=== PATIENT | male | born 1975 | race Caucasian/White ===

== ENCOUNTER 2016-08-28 22:42 | Emergency (ER) | payer MEDICARE ==
--- NOTE | 2016-08-29 01:07 | ED NURSING NOTES ---
Clinical Report - Nurses [facility] [address] [place] [address] 08/28/2016 22:43 Patient: MARILY ARREDONDO TRIAGE Triage time 23:26. Acuity: LEVEL 4. Chief Complaint: FALL (GLF). 23:42. Alert. SEPSIS SCREEN: Sepsis Screen. Negative (no infection suspected/documented). RHONDA COMA SCORE: Rhonda Coma Scale: 15- eyes open spontaneously (4); best verbal response- oriented x 4 (5); best motor response- obeys commands (6). --23:42 Ethan Pereira R.N. 23:26 08/28/16. BP: 139/74. HR: 99. RR: 14. O2 saturation: 91% on room air. Temp: 98.8 F (oral). Pain level now: 08/12. --23:42 Ethan Pereira R.N. Medications CloNIDine HCl Oral 0.1 mg, 2x a day. --23:35 Ethan Pereira R.N. ClonazePAM Oral 0.5 mg, daily as needed. --23:35 Ethan Pereira R.N. [place] Carbonate ER Oral (Tablet Extended Release 300 mg) 5 tabs, daily. --23:36 Ethan Pereira R.N. Metoprolol Tartrate Oral 25 mg, daily. --23:37 Ethan Pereira R.N. LORazepam Oral 1 mg, daily as needed. --23:38 Ethan Pereira R.N. Lisinopril Oral 10 mg, daily. --23:38 Ethan Pereira R.N. Gabapentin Oral (Capsule 300 mg) (2 caps 2 x daily 3 caps at night ). --23:38 Ethan Pereira R.N. OLANZapine Oral (Tablet 5 mg) 1/2 - 2 tabs , 3x a day as needed. --23:39 Ethan Pereira R.N. The following entry was struck and corrected by Ethan Pereira R.N., 23:42 (08/28/16) Reason for correction - other(correction). <<STRICKEN ENTRY-- LORazepam Oral 1 mg, daily. --23:38 Ethan Pereira R.N. --END STRIKE>> The following entry was struck and corrected by Ethan Pereira R.N., 23:42 (08/28/16) Reason for correction - other(correction). <<STRICKEN ENTRY-- ClonazePAM Oral 0.5 mg, daily. --23:35 Ethan Pereira R.N. --END STRIKE>>. Medication/allergy information source: the patient's family. --23:42 Ethan Pereira R.N. Allergies Penicillins. Sulfa Antibiotics. --23:40 Ethan Pereira R.N. History Arrived by private vehicle. Historian: family. Accompanied by family. Primary physician (Kevin). This occurred (2 hours ago). ( Mom reports pt is Bipolar had a manic episode then a depressed episode and stated drinking last Sunday, fell x2 today at home). Treatment MANAGER CASINO: None. Trauma activation: Pre-hospital notification of patient arrival was not received. PAST MEDICAL HX: Tetanus status: more than 5 years ago. Immunizations: up-to-date. SOCIAL HX: Current every day heavy tobacco smoker- 1 pack per day. Occasional alcohol use. Patient smells of ETOH in the emergency department (States " I drank 3-4 fifths today"). No drug use. No infectious disease exposure. ABUSE ASSESSMENT: No report of abuse. FALL RISK ASSESSMENT: Fall risk assessment completed. No fall risk identified. NUTRITIONAL RISK ASSESSMENT: The nutritional risk assessment revealed no deficiencies. FUNCTIONAL ASSESSMENT: Functional assessment: no impairments noted. LEARNING NEEDS ASSESSMENT: The learning needs assessment revealed no barriers. SKIN INTEGRITY ASSESSMENT: Skin integrity risk assessment completed. No skin integrity risk identified. --23:42 Ethan Pereira R.N. PROBLEMS: Alcohol Intoxication. Heart Disease. Gastroesophageal Reflux. Suicidal Ideation. Gastroesophageal Reflux Disease. Cardiomyopathy. Hypertension. Alcoholism. --23:41 Ethan Pereira R.N. Bipolar Disorder. --23:41 Ethan Pereira R.N. Interventions ID band on patient. To treatment room. --23:42 Ethan Pereira R.N. PHYSICAL ASSESSMENT 23:32. Ambulatory to room. Patient gowned. GENERAL / NEURO / PSYCH: Alert. Oriented X 4. ( slurred speech). HEENT: Forehead: small abrasion. RESPIRATORY: Respirations not labored. EXTREMITIES: Extremities exhibit normal ROM. Neuro-vascular status intact to the extremity. SKIN: Skin intact. Skin is warm and dry. --23:32 Ethan Pereira R.N. NURSING PROGRESS NOTES 23:31. Oxygen administered by nasal cannula at 2 liters. Two patient identifiers checked. Call light placed in reach. Side rails up x 2. Bed placed in lowest position. Brakes of bed on. --23:31 Ethan Pereira R.N. 00:10. ( pt mother came to nurses station stating pt became agitated and got up and walked out of department. MD notified and family in waiting room attempting to convince pt to return to room.). --00:14 Namrata Minor R.N. DISPOSITION / DISCHARGE Departure time: 4. The patient left the Emergency Department without being seen by a physician. The patient appears to be alert, oriented x4, coherent and uncooperative. He stated is leaving the ED due to personal reasons. Notified the ED physician and charge nurse of patient departure. He left the Emergency Department ambulatory. ( Family was unable to convince patient to come back into the ED. Dr. Bryant informed me that he did speak to the patient's mother and told her that if she feels she needs to, she can call the police and have them bring the patient back to the ED.). --01:06 Ethan Pereira R.N. Locked/Released at 08/29/2016 1:12 by Ethan Pereira R.N.
--- NOTE | 2016-08-29 01:07 | ED NURSING NOTES ---
Clinical Report - Nurses [facility] [address] [place] [address] 08/28/2016 22:43 Patient: MARILY ARREDONDO TRIAGE Triage time 23:26. Acuity: LEVEL 4. Chief Complaint: FALL (GLF). 23:42. Alert. SEPSIS SCREEN: Sepsis Screen. Negative (no infection suspected/documented). RHONDA COMA SCORE: Rhonda Coma Scale: 15- eyes open spontaneously (4); best verbal response- oriented x 4 (5); best motor response- obeys commands (6). --23:42 Ethan Pereira R.N. 23:26 08/28/16. BP: 139/74. HR: 99. RR: 14. O2 saturation: 91% on room air. Temp: 98.8 F (oral). Pain level now: 08/12. --23:42 Ethan Pereira R.N. Medications CloNIDine HCl Oral 0.1 mg, 2x a day. --23:35 Ethan Pereira R.N. ClonazePAM Oral 0.5 mg, daily as needed. --23:35 Ethan Pereira R.N. [place] Carbonate ER Oral (Tablet Extended Release 300 mg) 5 tabs, daily. --23:36 Ethan Pereira R.N. Metoprolol Tartrate Oral 25 mg, daily. --23:37 Ethan Pereira R.N. LORazepam Oral 1 mg, daily as needed. --23:38 Ethan Pereira R.N. Lisinopril Oral 10 mg, daily. --23:38 Ethan Pereira R.N. Gabapentin Oral (Capsule 300 mg) (2 caps 2 x daily 3 caps at night ). --23:38 Ethan Pereira R.N. OLANZapine Oral (Tablet 5 mg) 1/2 - 2 tabs , 3x a day as needed. --23:39 Ethan Pereira R.N. The following entry was struck and corrected by Ethan Pereira R.N., 23:42 (08/28/16) Reason for correction - other(correction). <<STRICKEN ENTRY-- LORazepam Oral 1 mg, daily. --23:38 Ethan Pereira R.N. --END STRIKE>> The following entry was struck and corrected by Ethan Pereira R.N., 23:42 (08/28/16) Reason for correction - other(correction). <<STRICKEN ENTRY-- ClonazePAM Oral 0.5 mg, daily. --23:35 Ethan Pereira R.N. --END STRIKE>>. Medication/allergy information source: the patient's family. --23:42 Ethan Pereira R.N. Allergies Penicillins. Sulfa Antibiotics. --23:40 Ethan Pereira R.N. History Arrived by private vehicle. Historian: family. Accompanied by family. Primary physician (Kevin). This occurred (2 hours ago). ( Mom reports pt is Bipolar had a manic episode then a depressed episode and stated drinking last Sunday, fell x2 today at home). Treatment LIBRARY SERVICES COORDINATOR: None. Trauma activation: Pre-hospital notification of patient arrival was not received. PAST MEDICAL HX: Tetanus status: more than 5 years ago. Immunizations: up-to-date. SOCIAL HX: Current every day heavy tobacco smoker- 1 pack per day. Occasional alcohol use. Patient smells of ETOH in the emergency department (States " I drank 3-4 fifths today"). No drug use. No infectious disease exposure. ABUSE ASSESSMENT: No report of abuse. FALL RISK ASSESSMENT: Fall risk assessment completed. No fall risk identified. NUTRITIONAL RISK ASSESSMENT: The nutritional risk assessment revealed no deficiencies. FUNCTIONAL ASSESSMENT: Functional assessment: no impairments noted. LEARNING NEEDS ASSESSMENT: The learning needs assessment revealed no barriers. SKIN INTEGRITY ASSESSMENT: Skin integrity risk assessment completed. No skin integrity risk identified. --23:42 Ethan Pereira R.N. PROBLEMS: Alcohol Intoxication. Heart Disease. Gastroesophageal Reflux. Suicidal Ideation. Gastroesophageal Reflux Disease. Cardiomyopathy. Hypertension. Alcoholism. --23:41 Ethan Pereira R.N. Bipolar Disorder. --23:41 Ethan Pereira R.N. Interventions ID band on patient. To treatment room. --23:42 Ethan Pereira R.N. PHYSICAL ASSESSMENT 23:32. Ambulatory to room. Patient gowned. GENERAL / NEURO / PSYCH: Alert. Oriented X 4. ( slurred speech). HEENT: Forehead: small abrasion. RESPIRATORY: Respirations not labored. EXTREMITIES: Extremities exhibit normal ROM. Neuro-vascular status intact to the extremity. SKIN: Skin intact. Skin is warm and dry. --23:32 Ethan Pereira R.N. NURSING PROGRESS NOTES 23:31. Oxygen administered by nasal cannula at 2 liters. Two patient identifiers checked. Call light placed in reach. Side rails up x 2. Bed placed in lowest position. Brakes of bed on. --23:31 Ethan Pereira R.N. 00:10. ( pt mother came to nurses station stating pt became agitated and got up and walked out of department. MD notified and family in waiting room attempting to convince pt to return to room.). --00:14 Namrata Minor R.N. DISPOSITION / DISCHARGE Departure time: 4. The patient left the Emergency Department without being seen by a physician. The patient appears to be alert, oriented x4, coherent and uncooperative. He stated is leaving the ED due to personal reasons. Notified the ED physician and charge nurse of patient departure. He left the Emergency Department ambulatory. ( Family was unable to convince patient to come back into the ED. Dr. Bryant informed me that he did speak to the patient's mother and told her that if she feels she needs to, she can call the police and have them bring the patient back to the ED.). --01:06 Ethan Pereira R.N. Locked/Released at 08/29/2016 1:12 by Ethan Pereira R.N.
--- NOTE | 2016-08-29 01:13 | ED MAR SUMMARY ---
..... Medication Administration Record [facility] [address], [place] [id number] Patient: MARILY ARREDONDO Visit ID: [id number] 40y, M Weight: (not available) Height/Length: (not available) BMI: (not available) ALLERGIES: Penicillins, Sulfa Antibiotics
--- NOTE | 2016-08-29 01:13 | ED MAR SUMMARY ---
..... Medication Administration Record [facility] [address], [place] [id number] Patient: MARILY ARREDONDO Visit ID: [id number] 40y, M Weight: (not available) Height/Length: (not available) BMI: (not available) ALLERGIES: Penicillins, Sulfa Antibiotics
--- NOTE | 2016-08-29 01:13 | ED MED RECONCILIATION SUMMARY ---
Patient: MARILY ARREDONDO Medication Reconciliation Report [facility] VisitID: [id number] [address] [place] [address] 40y, M Registration Date/Time: 08/28/2016 Weight: (not available) Height/Length: (not available) BMI: (not available) ALLERGIES: Penicillins, Sulfa Antibiotics The patient's Home Medications are listed below: THE FOLLOWING MEDICATIONS NEED TO BE RECONCILED: ClonazePAM Oral 0.5 mg, daily CloNIDine HCl Oral 0.1 mg, 2x a day Gabapentin Oral (300 mg), 2 caps 2 x daily 3 caps at night Lisinopril Oral 10 mg, daily [place] Carbonate ER Oral (300 mg) 5 tabs, daily LORazepam Oral 1 mg, daily Metoprolol Tartrate Oral 25 mg, daily OLANZapine Oral (5 mg) 1/2 - 2 tabs , 3x a day The source(s) of the original Home Medication information: patient's family member The following Medications were given to the patient in the Emergency Department: None. The following Medications were prescribed to the patient: None.
--- NOTE | 2016-08-29 01:13 | ED MED RECONCILIATION SUMMARY ---
Patient: MARILY ARREDONDO Medication Reconciliation Report [facility] VisitID: [id number] [address] [place] [address] 40y, M Registration Date/Time: 08/28/2016 Weight: (not available) Height/Length: (not available) BMI: (not available) ALLERGIES: Penicillins, Sulfa Antibiotics The patient's Home Medications are listed below: THE FOLLOWING MEDICATIONS NEED TO BE RECONCILED: ClonazePAM Oral 0.5 mg, daily CloNIDine HCl Oral 0.1 mg, 2x a day Gabapentin Oral (300 mg), 2 caps 2 x daily 3 caps at night Lisinopril Oral 10 mg, daily [place] Carbonate ER Oral (300 mg) 5 tabs, daily LORazepam Oral 1 mg, daily Metoprolol Tartrate Oral 25 mg, daily OLANZapine Oral (5 mg) 1/2 - 2 tabs , 3x a day The source(s) of the original Home Medication information: patient's family member The following Medications were given to the patient in the Emergency Department: None. The following Medications were prescribed to the patient: None.
== END 2016-08-29 00:34 | disposition left against medical advice (07) ==
LOC: ED SRH 22:42
DX: Z53.21 Procedure and treatment not carried out due to patient leaving prior to being seen by health care provider (principal)

== ENCOUNTER 2016-08-29 14:51 | Emergency (ER) | payer MEDICARE ==
--- NOTE | 2016-08-30 11:26 | ED CLINICAL REPORT ---
Clinical Report - Physicians/Mid Levels [facility] [address] [place] [place] [address] 08/29/2016 14:51 Patient: MAIRLY BROWN Time Seen: 14:55. Arrived- By ambulance. In custody of police. Historian- EMS personnel and police. History limited by poor cooperation. Physical Exam limited by poor cooperation and intoxication. HISTORY OF PRESENT ILLNESS Chief Complaint: DEPRESSED and SUICIDAL ATTEMPT. This started several days ago. Recent heavy alcohol consumption. Last drink was just prior to arrival. He is under influence in ED. Has been depressed and had suicidal thoughts. The symptoms are described as severe. An injury is present. Location- (two days ago he fell forward onto his face.). 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 pt has been in manic episode for that last couple of weeks and increased depression the last couple of days. REVIEW OF SYSTEMS No abdominal pain or pain, decreased vision, ear pain or sore throat. No chest pain, cough, difficulty breathing, headache or seizure. He has had a single skin lesion (He reports that he fell yesterday and scraped his head.); located on the scalp. PAST HISTORY ( PAST HISTORY Chest Pain of GI Origin. GI Disease. Alcohol Intoxication. Vomiting. Abdominal Pain. Abnormal Test. Heart Disease. Gastroesophageal Reflux. Suicidal Ideation. Suicide Attempt. Gastroesophageal Reflux Disease. Cardiomyopathy BY HISTORY, TWO NEGATIVE ECHOS SINCE Gastritis. Lifestyle / Substance Problems. Hypertension. Substance Abuse. Alcoholism. Bipolar Disorder.). Problems: Chest Pain of GI Origin. GI Disease. Alcohol Intoxication. Vomiting. Abdominal Pain. Abnormal Test. Heart Disease. Gastroesophageal Reflux. Suicidal Ideation. Suicide Attempt. Gastroesophageal Reflux Disease. Cardiomyopathy. Gastritis. Lifestyle / Substance Problems. Hypertension. Substance Abuse. Alcoholism. Bipolar Disorder. SOCIAL HISTORY Smoker- current status unknown. Patient refuses to answer tobacco use questions. Heavy alcohol use. Last drink was just prior to arrival. Under the influence in E.D. No drug use. Has social support (The patient's mother has medical power of commercial attorney). Lives with family. ADDITIONAL NOTES The nursing notes have been reviewed. PHYSICAL EXAM Vital Signs: 08/29/2016 14:54 BP: 102/48. HR: 74. RR: 14. O2 saturation: 94%. Temp: 97.7 F. Pain level now: 0/10. Have been reviewed. Appearance: Alert. Is disheveled. He appears intoxicated and has ETOH on breath. (Bilateral facial abrasions which are superficial). Eyes: Pupils equal, round and reactive to light. Neck: Normal inspection. Neck supple. CVS: Normal heart rate and rhythm. Heart sounds normal. Respiratory: Breath sounds normal. Abdomen: Soft and nontender. Obese. Skin: Skin warm and dry. Normal skin color. Normal skin turgor. Extremities: Extremities exhibit normal ROM. No lower extremity edema. Psych / Neuro: The patient does not feel treatment is necessary. LABS, X-RAYS, AND EKG EKG: Normal EKG. Rate: 75. EKG unchanged when compared with prior EKG. (15 Dec 2015). Laboratory Tests: CPK: (AZRA: 08/30/2016 06:15) ( [facility] 08/30/2016 06:58) Final results Test Result Flag Units (Reference) CPK 500 H U/L (24-260) CK-MB 2.5 ng/mL (0.5-3.2) %CKMB 0.5 % (0.0-4.0) CPK: (AZRA: 08/30/2016 03:20) ( [facility] 08/30/2016 03:58) Final results Test Result Flag Units (Reference) CPK 558 H U/L (24-260) CK-MB 2.8 ng/mL (0.5-3.2) %CKMB 0.5 % (0.0-4.0) UA-Culture if indicated: (AZRA: 08/29/2016 15:23) ( [facility] 08/29/2016 15:45) Final results Test Result Flag Units (Reference) URINE COLOR YELLOW URINE APPEARANCE CLEAR URINE GLUCOSE NEGATIVE (NEGATIVE) URINE BILIRUBIN NEGATIVE (NEGATIVE) URINE KETONE NEGATIVE (NEGATIVE) URINE SPECIFIC GRAVITY 1.015 (1.010-1.030) URINE PH 8.0 (5.0-8.0) URINE PROTEIN NEGATIVE (NEGATIVE) URINE UROBILINOGEN 0.2 EU/dL (0.2-1.0) URINE NITRITE NEGATIVE (NEGATIVE) URINE BLOOD NEGATIVE (NEGATIVE) URINE LEUK ESTERASE NEGATIVE (NEGATIVE) URINE RBC NONE SEEN rbc/hpf (0-1) URINE WBC NONE SEEN wbc/hpf (0-1) URINE EPITHELIAL CELLS RARE EPI/hpf (0-5) URINE BACTERIA NONE SEEN (NONE SEEN) URINE COMMENT CULT NOT INDICATED URINE CULTURES ARE SET-UP BASED ON THE FOLLOWING CRITERIA:POSITIVE NITRITEPOSITIVE LEUKOCYTE ESTERASEGREATER THAN 10 WHITE BLOOD CELLSMODERATE (2+) OR GREATER BACTERIA CBC w Diff: (AZRA: 08/29/2016 16:00) ( [facility] 08/29/2016 16:31) Final results Test Result Flag Units (Reference) WHITE BLOOD COUNT 6.4 K/uL (4.5-11.5) RED BLOOD COUNT 4.92 M/uL (4.50-5.90) HEMOGLOBIN 14.9 gm/dL (13.5-17.5) HEMATOCRIT 43.6 % (41.0-53.0) MEAN CELL VOLUME 89 fL (80-100) MEAN CORPUSCULAR HGB 30 pg (26-34) MEAN CORPUSCULAR HGB CONC 34 g/dL (31-37) RED CELL DISTRIBUTION WIDTH 13.1 % (11.6-14.8) PLATELET COUNT 224 K/uL (150-400) NEUTROPHIL % 54.6 % (50-75) LYMPH % 34.1 % (25-40) MONO % 5.7 % (3-14) EOSINOPHIL % 5.0 H % (0-4) BASOPHIL % 0.6 % (0-2) TSH: (AZRA: 08/29/2016 16:00) ( [facility] 08/30/2016 00:12) Final results Test Result Flag Units (Reference) THYROID STIMULATING HORMONE 0.744 uIU/mL (0.34-3.74) Urine Drug Screen: (AZRA: 08/29/2016 15:23) ( [facility] 08/29/2016 15:56) Final results Test Result Flag Units (Reference) AMPHETAMINE/METHAMPHETAMINE NEGATIVE (NEGATIVE) BARBITURATE NEGATIVE (NEGATIVE) BENZODIAZEPINE NEGATIVE (NEGATIVE) CANNABINOID NEGATIVE (NEGATIVE) COCAINE NEGATIVE (NEGATIVE) ECSTASY NEGATIVE (NEGATIVE) METHADONE NEGATIVE (NEGATIVE) OPIATE NEGATIVE (NEGATIVE) The urine drug screen is a qualitative screening test fordrug overdose and abuse. All screen results should beconsidered as presumptive.Drugs screened for are as follows:BenzodiazepinesCocaineAmphetamines/MetamphetaminesTHC (Tetrahydrocannabinol)OpiatesBarbituratesEcstasyMethadonePositive results are unconfirmed. For confirmation, notifythe lab for the specimen to be sent to the reference lab.All confirmations must be performed by a differentmethodology.The ingestion of natural herbal and plant productscontaining Ephedra/Ephedra metabolites can produce in urineone or more substances capable of cross reacting withamphetamine/methamphetamine immunoassays. These testsprovide a preliminary result only. A more specificalternative chemical method must be used to obtain aconfirmed analytical result. Salicylate Level: (AZRA: 08/29/2016 16:00) ( [facility] 08/29/2016 17:12) Final results Test Result Flag Units (Reference) SALICYLATE <2.8 L mg/dL (2.8-20) CMP: (AZRA: 08/29/2016 16:00) ( [facility] 08/29/2016 17:10) Final results Test Result Flag Units (Reference) GLUCOSE 96 mg/dL (70-110) BUN 10 mg/dL (7-18) CREATININE 0.9 mg/dL (0.6-1.3) Estimated GFR >60 mL/min Estimated GFR- >60 mL/min Note: Persistent reduction over 3 months in eGFR<60 mL/min/1.73 m2 defines CKD. Patients with eGFR values>=60 mL/min/1.73 m2 may also have CKD if evidence ofpersistent proteinuria. Additional information may be foundat www.kidney.org. SODIUM 147 H mmol/L (136-145) POTASSIUM 3.9 mmol/L (3.5-5.1) CHLORIDE 109 H mmol/L (98-107) CARBON DIOXIDE 30 mmol/L (21-32) CALCIUM 8.6 mg/dL (8.5-10.1) TOTAL PROTEIN 6.8 g/dL (6.4-8.2) ALBUMIN 3.8 g/dL (3.3-5.0) BILIRUBIN, TOTAL 0.8 mg/dL (0.0-1.0) ALKALINE PHOSPHATASE 77 U/L (46-116) AST (SGOT) 42 H U/L (15-37) ALT (SGPT) 39 U/L (12-78) LIPASE 72 L U/L (73-393) AMYLASE 31 U/L (25-115) CPK 882 H U/L (24-260) TROPONIN I <0.05 L ng/mL (0.00-1.5) TROPONIN REFERENCE RANGE:<0.1 NEGATIVE0.1-1.5 INDETERMINANT>1.5 POSITIVE ACETAMINOPHEN < 2.0 L ug/mL (10-30) ETHYL ALCOHOL 183 H mg/dL (3-10) CK-MB 7.5 H ng/mL (0.5-3.2) %CKMB 0.9 % (0.0-4.0) . PROGRESS AND PROCEDURES Course of Care: 21:10 08/29/16. the case was discussed with Dr. Hines at change of shift. We reviewed the patient's history and physical examination findings and the results of his studies. He will follow up on the results of the patient's pending consults and will arrange an appropriate disposition for him. - MW Care assumed from Dr Young. Intedependent history and physical exam done. Anthony Hnies MD 01:27 08/30/16. CDP here. 04:37 08/30/16. [facility] [place] found the [facility] detain[facility] but could not find any facility who would accept him. Debbie is at capacity. She is turning him over to our best judgment. 04:39 08/30/16. Called [employer] administrator accounting reconciliation clerk Reji CARRANZAO. at [phone]. Left a message. 05:05 08/30/16. My judgment is that even though it is without statutory support that on the basis of the police affidavit Mr. Brown should be held. Mr Perez agrees that Mr Brown should be held for now. He will seek further guidance from risk management. 06:26 08/30/16. Feeding Mr Brown breakfast. "I just want to go home. " ordering 3rd CPK. I don't think it is clinically significant but it is the only reason that [facility] declined the admission. 08:01 08/30/16. Isabelle Meadeagit Psych public relations manager, "We will have discharges." 08:27 08/30/16. [facility] - you need to call [facility] again. 10:21 08/30/16. [facility]. The history of cardiomyopathy is non relavent currently since he has had two negative echos since by Mr. Ott history. 11:22 08/30/16. [facility] this [facility]. She does not believe that he is currently at risk to herself or others. Marcos believes that the history given to the public safety police with the patient was intoxicated was the non-valid history and that the patient's current sober estimation that he would not harm himself is valid. The patient and his mother are in agreement with Otto's current assessment. He plans to go to an Alcoholics Anonymous meeting today and keep his regular mental health appointments. He will be moving out of [place] in a couple of days and will need to establish mental health follow-up at that time. This is certainly not the best timing. The patient does not desire psychiatric hospitalization nor does the [facility] believe that he is eligible for involuntary psychiatric hospitalization. Disposition: Discharged. Condition: improved. CLINICAL IMPRESSION Suicidal ideation (RESOLVED). Bipolar disorder (history of). Acute alcohol intoxication. INSTRUCTIONS ([facility] HAS FOUND YOU NOT DETAINABLE PLEASE DO NOT DRINK YOU HAVE STATED THAT YOU WILL NOT HARM YOUR SELF. IF YOU CANNOT KEEP THAT AGREEMENT PLEASE RETURN TO THE ED. THANK YOU FOR LETTING US CARE FOR YOU.). Understanding of the discharge instructions verbalized by patient. (Electronically signed by Rodney Hines MD 08/30/2016 16:35)
--- NOTE | 2016-08-30 11:26 | ED NURSING NOTES ---
Clinical Report - Nurses [facility] [address] [place] [address] 08/29/2016 14:51 Patient: MARILY ARREDONDO TRIAGE Triage time 14:54 Aug 29 2016. Acuity: LEVEL 2. Chief Complaint: DEPRESSION and SUICIDAL THOUGHTS. No acute distress. RHONDA COMA SCORE: Rhonda Coma Scale: 14- eyes open spontaneously (4); best verbal response- disoriented (4); best motor response- obeys commands (6). --15:03 Patricia Spencer R.N. 14:54 08/29/16. BP: 102/48. HR: 74. RR: 14. O2 saturation: 94%. Temp: 97.7 F. Pain level now: 0/10. --15:03 Patricia Spencer R.N. Weight: 129.2 kg stated. Height/Length: 69 inches Per Patient. BMI: 42.1. --15:02 Patricia Spencer R.N. Medications Ativan Oral (Tablet 1 mg) 1 tablet, 2x a day as needed. --10:49 Alex Brooks R.N. [place] Carbonate ER Oral (Tablet Extended Release 300 mg) 1200mg, daily. --14:56 Alex Brooks R.N. ClonazePAM Oral 0.5 mg, daily as needed. CloNIDine HCl Oral 0.1 mg, 2x a day. Gabapentin Oral (Capsule 300 mg) (2 caps 2 x daily 3 caps at night ). Lisinopril Oral 10 mg, daily. LORazepam Oral 1 mg, daily as needed. Metoprolol Tartrate Oral 25 mg, daily. OLANZapine Oral (Tablet 5 mg) 1/2 - 2 tabs , 3x a day as needed. --14:56 Patricia Spencer R.N. The following entry was struck and corrected by Alex Brooks R.N., 10:47 (08/30/16) Reason for correction - other(correction). <<STRICKEN ENTRY-- [place] Carbonate ER Oral (Tablet Extended Release 300 mg) 5 tabs, daily. --14:56 Patricia Spencer R.N. --END STRIKE>>. Allergies Penicillins. Sulfa Antibiotics. --14:56 Patricia Spencer R.N. History Arrived by EMS, and from home. Historian: patient (EMT). Onset: just prior to arrival. ( pt took knife and told mother that he was going to kill himself and if that did not work that he would try suicide by endoscopy registered nurse. pt has been in manic episode for that last couple of weeks and increased depression the last couple of days.). He describes feelings of depression and has had sleeping difficulties. Has been feeling agitated. Admits to having hallucinations. PAST MEDICAL HX: Immunizations: status is unknown. SOCIAL HX: Smoker- current status unknown. Heavy alcohol use. Last drink was less than 24 hours ago. No drug use. No infectious disease exposure. SELF HARM ASSESSMENT: A self harm assessment was performed. The patient answered "yes" to the question "Have you recently felt down, depressed, or hopeless?", "Do you have thoughts of harming or killing yourself?", "Are you here because you tried to hurt yourself?" and "Have you ever tried to hurt yourself before today?" and "no" to the question "Have you recently had thoughts about harming or killing others?" and "Do you have any dangerous items in your possession?". The EMS reported the patient's behavior. FALL RISK ASSESSMENT: Fall risk assessment completed. No fall risk identified. NUTRITIONAL RISK ASSESSMENT: The nutritional risk assessment revealed no deficiencies. FUNCTIONAL ASSESSMENT: Functional assessment: no impairments noted. LEARNING NEEDS ASSESSMENT: The learning needs assessment revealed no barriers. ABUSE ASSESSMENT: Abuse assessment: The patient was asked "Do you feel safe in your home?". SKIN INTEGRITY ASSESSMENT: Skin integrity risk assessment completed. No skin integrity risk identified. --15:03 Patricia Spencer R.N. ( belongings in LOCKER #5 LOCK #3). --15:51 Charlee Moon R.N. PROBLEMS: Chest Pain of GI Origin. GI Disease. Alcohol Intoxication. Vomiting. Abdominal Pain. Abnormal Test. Heart Disease. Gastroesophageal Reflux. Suicidal Ideation. Suicide Attempt. Gastroesophageal Reflux Disease. Cardiomyopathy. Gastritis. Lifestyle / Substance Problems. Hypertension. Substance Abuse. Alcoholism. Bipolar Disorder. --14:57 Patricia Spencer R.N. ADDITIONAL SURGERIES: None. --14:57 Patricia Spencer R.N. Interventions ID band on patient. To room. --15:03 Patricia Spencer R.N. PHYSICAL ASSESSMENT To room via stretcher. Patient gowned. GENERAL / NEURO / PSYCH: Alert. Appears in no acute distress. The patient is disoriented to time. Patient's speech is slurred. Patient's mood/affect appears hostile. Behavior appears abnormal, including having apparent auditory and visual hallucinations. The patient describes suicidal thoughts. Patient appears agitated. Patient smells of alcohol. RESPIRATORY: Respirations not labored. CVS: Capillary refill less than 2 seconds. GI / : Abdomen soft and nontender. SKIN: Skin is warm and dry. --15:04 Patricia Spencer R.N. NURSING PROGRESS NOTES Pulse oximeter and NIBP monitor placed on patient; monitor alarms on. Patient gowned. Head of bed elevated. Patient identifiers checked. Call light placed in reach. Side rails up x 2. Bed placed in lowest position. Brakes of bed on. --15:05 Patricia Spencer R.N. BREATHALYZER: Breathalyzer (.162). --15:22 Patricia Spencer R.N. Patient ID band checked for patient name and birthdate. Clean catch urine collected with return of yellow-colored clear urine; sample sent to lab for urinalysis, culture and drug screen. Specimen labeled in the presence of the patient. --15:30 Patricia Spencer R.N. Patient ID band checked for patient name and birthdate. Blood samples drawn from the right antecubital space by nurse per protocol ; labeled in presence of the patient and sent to lab: [facility]. The patient is sleeping. Overall patient status is the same- he states feels the same. --16:13 Patricia Spencer R.N. ( pt had urinated on floor even though urinal was in the room and then patient got up again to urinate. I handed the patient the urinal this time and waited outside the room. Patient urinate some in urinal and then urinated on the floor again. Notified Charge nurse.). --18:42 Patricia Spencer R.N. <<[facility] ENTRY-- 18:45 08/29/16. BP: 138/79. HR: 93. RR: 18. O2 saturation: 97%. Pain level now: 0/10. --18:49 Patricia Spencer R.N. --END STRIKE>> Charted on wrong patient. --18:52 Patricia [facility].N. [facility] Overall patient status is the same- he states feels the same. GENERAL / NEURO / PSYCH: Patient appears calm and cooperative. RESPIRATORY: No respiratory distress. SKIN: Skin is warm and dry. --18:49 Patricia Spencer R.N. --END STRIKE>> Charted On Wrong Patient --18:53 Patricia Spencer R.N. 18:40. ( Breathalyzer (.131)). --19:05 Danie Deleon, ABBY Tech1 ( patient was provided phone and attempted to call his mother but there was no answer. pt called this nurse a bitch under his breath when he was handed the phone. the phone was removed from the patients room after he attempted to call home.). --19:15 Patricia Spencer R.N. 19:13 08/29/16. BP: 138/81. HR: 81. RR: 16. O2 saturation: 90%. Pain level now: 0/10. --19:15 Patricia Spencer R.N. The patient is sleeping. Overall patient status is the same- he states feels the same. ( family sitting outside of room while pt is sleeping.). --20:32 Patricia Spencer R.N. BREATHALYZER: Breathalyzer (0.08). --20:42 Patricia Spencer R.N. The patient is sleeping. RESPIRATORY: No respiratory distress. --21:27 Patricia Spencer R.N. The patient is resting quietly. GENERAL / NEURO / PSYCH: Alert. Patient appears calm and cooperative. RESPIRATORY: No respiratory distress. SKIN: Skin is warm and dry. Skin color within normal limits. --21:51 Patricia Spencer R.N. 21:51 08/29/16. BP: 116/69. HR: 89. RR: 16. O2 saturation: 92%. --21:51 Patricia Spencer R.N. 23:04 08/29/2016 TDAP IM 0.5 mL given. (Lot#: [id number], expiration date: 07/13/2018, Mechanic Recovery: sanOpGen pasteur). --23:04 Patricia Spencer R.N. The patient is sleeping. Overall patient status is the same- he states feels the same. ( pt wakes easily and is no longer slurring words and is following directions.). GENERAL / NEURO / PSYCH: Patient appears calm and cooperative. RESPIRATORY: No respiratory distress. SKIN: Skin is warm and dry. Skin color within normal limits. --23:05 Patricia Spencer R.N. late entry - 23:21. Care transferred and report received (from BEA Gomez). --00:30 Karen Peres R.N. 00:30 08/30/16. The patient is sleeping. Overall patient status is improved- he states feels better. RESPIRATORY: No respiratory distress. SKIN: Skin is warm and dry. Skin color within normal limits. --00:30 Karen Peres R.N. late entry - 23:30. ( This RN discussed patient's plan of care with patient's mother, who is his power of title attorney. Patients mother states "I want to take him home if you can't find a place for him, but I'm worried I can't keep him safe. I really hope he can go somewhere to get his medication under control." Patient's mother requests that she be notified as soon as a decision is made about the patient's next steps. She is heading home now but states that she will come back whenever needed.). --00:33 Karen Peres R.N. GENERAL / NEURO / PSYCH: Alert. Oriented X 4. Patient appears calm and cooperative. Affect appears normal. RESPIRATORY: No respiratory distress. SKIN: Skin is warm and dry. Skin color within normal limits. ( Patient given water and snack. His tone of voice seems annoyed, but he was pleasant to this RN.). --01:31 Karen Peres R.N. 02:31 08/30/16. The patient is sleeping. RESPIRATORY: No respiratory distress. SKIN: Skin color within normal limits. --02:31 Karen Peres R.N. Patient ID band checked for patient name and birthdate: patient confirmed. Blood samples drawn from the left antecubital space with Vacutainer and 21g butterfly [address] [facility] per protocol ; labeled in presence of the patient and sent to lab: [facility]. --03:24 Donavan Darby, ABBY Seal Mixing Operator 03:57 08/30/16. The patient is sleeping. RESPIRATORY: No respiratory distress. SKIN: Skin is warm and dry. Skin color within normal limits. --03:57 Karen Peres R.N. ( Patient was not admitted to [facility]. Can call [facility] in the morning (10-11am) to try to find other placement.). --05:00 Karen Peres R.N. 05:09 08/30/16. The patient is sleeping. RESPIRATORY: No respiratory distress. SKIN: Skin is warm and dry. Skin color within normal limits. --05:09 Karen Peres R.N. 04:42. ( BREAKFAST TRAY ORDERED). --05:55 Lara Scott, ER Tech1 06:38 08/30/16. BP: 124/73. HR: 75. RR: 16. O2 saturation: 96%. Pain level now: 0/10. --06:40 Karen Peres R.N. 06:40 08/30/16. --06:40 Karen Peres R.N. Care transferred and report received (Karen, RN). --07:18 Alex Brooks R.N. late entry -08:08. Reassurance given. Bed placed in lowest position. Brakes of bed on. ( Pt in locked seclusion for safety, orders on the chart.). --09:20 Alex Brooks R.N. 10:25 08/30/2016 Clonidine PO Tablets 0.1 mg given. Allergies verified and confirmed 5 rights. --10:28 Alex Brooks R.N. 10:25 08/30/2016 LITHIUM ([place] Citrate) PO Capsules 1200 mg given. Allergies verified and confirmed 5 rights. --10:30 Alex Brooks R.N. 10:25 08/30/2016 Metoprolol PO Tablets 25 mg given. Allergies verified and confirmed 5 rights. --10:30 Alex Brooks R.N. 10:25 08/30/2016 Ativan (LORazepam) PO Tablets 1 mg given. Allergies verified, confirmed 5 rights and sedative warning given to the patient. --10:31 Alex Brooks R.N. 10:25 08/30/2016 Lisinopril PO Tablets 10 mg given. Allergies verified and confirmed 5 rights. --10:31 Alex Brooks R.N. ( [facility] here to assess pt for placement.). --10:35 Alex Brooks R.N. ( Morning meds were given.). --10:35 Alex Brooks R.N. 10:44 08/30/2016 Gabapentin PO Capsules 600 mg given. Allergies verified and confirmed 5 rights. --10:44 Alex Brooks R.N. DISPOSITION / DISCHARGE Departure time: 1135. ( Released from seclusion @1115.). No learning barriers present. Discharge instructions provided and reviewed with the patient and parent. Reviewed warnings. Treatments reviewed. Reviewed referrals. Patient and parent verbalized understanding. Written instructions provided in Kazakh. The patient was discharged by the physician. He was discharged home and accompanied by parent. He left the Emergency Department ambulatory and via taxi. Driving (Taxi). Patient's personal items include, Returned to pt. --11:35 Alex Brooks R.N. 11:27 08/30/16. BP: 147/99 (large adult cuff) taken on the right arm, while sitting. HR: 65. RR: 16. O2 saturation: 95% on room air. Temp: 97.9 F (oral). Pain level now: 0/10. --11:35 Alex Brooks R.N. Locked/Released at 08/30/2016 11:50 by Alex Brooks R.N.
--- NOTE | 2016-08-30 11:26 | ED ORDER SUMMARY ---
..... Patient: MARILY ARREDONDO OrderSheet [facility] VisitID: [id number] [place] [address] 40y, M Registration Date/Time: 08/29/2016 ORDER SHEET Weight: 129.2 kg (stated) Allergies: Penicillins, Sulfa Antibiotics GENERAL ORDERS: CBC w Diff Urgent (14:56 08/29/2016 Glo ALLISON) (Ack 14:58 LNations ER Tech1) (16:07 KKnebel R.N.) CMP Urgent (14:56 08/29/2016 Glo ALLISON) (Ack 14:58 LNations ER Tech1) (16:07 KKnebel R.N.) UA-Culture if indicated Urgent (14:56 08/29/2016 Glo ALLISON) (Ack 14:58 LNations ER Tech1) (15:49 KKnebel R.N.) Amylase Urgent (14:56 08/29/2016 Glo ALLISON) (Ack 14:59 LNations ER Tech1) (16:07 KKnebel R.N.) Lipase Urgent (14:56 08/29/2016 Glo ALLISON) (Ack 15:00 LNations ER Tech1) (16:07 KKnebel R.N.) Urine Drug Screen Urgent (14:56 08/29/2016 Glo ALLISON) (Ack 15:00 LNations ER Tech1) (15:49 KKnebel R.N.) Ethyl Alcohol Urgent (14:56 08/29/2016 Glo ALLISON) (Ack 15:00 LNations ER Tech1) (16:08 KKnebel R.N.) Acetaminophen Level Urgent (14:56 08/29/2016 Glo ALLISON) (Ack 15:00 LNations ER Tech1) (16:08 KKnebel R.N.) Salicylate Level Urgent (14:56 08/29/2016 Glo ALLISON) (Ack 15:00 LNations ER Tech1) (16:08 KKnebel R.N.) Suicide Precautions (14:56 08/29/2016 Glo ALLISON) (Ack 14:58 LNations ER Tech1) (15:49 KKnebel R.N.) EKG - ER Stat (14:56 08/29/2016 Glo ALLISON) (Ack 14:58 LNations ER Tech1) (15:25 LNations ER Tech1) CPK Urgent (14:57 08/29/2016 Glo ALLISON) (Ack 15:00 LNations ER Tech1) (16:08 JHONYnebel R.N.) Troponin-I Urgent (14:57 08/29/2016 Glo ALLISON) (Ack 15:00 LNations ER Tech1) (16:08 JHONYnebel R.N.) POC Breathalyzer (15:26 08/29/2016 LNations ER Tech1 per protocol) (16:08 JHONYnebel R.N.) TSH Urgent (23:45 08/29/2016 Titus R.N. verbal order read back to Glo ALLISON) (23:51 ALawrence ER Tech1) CPK Urgent (03:17 08/30/2016 Richa ALLISON) (3:22 ALawrence ER Tech1) CPK Urgent (06:08 08/30/2016 Richa ALLISON) (Ack 6:09 ALawrence ER Tech1) (6:16 ALawrence ER Tech1) MEDICATION ORDERS: Tdap IM 0.5 mL (NOW) (22:44 08/29/2016 Richa ALLISON) (23:04 Alyx R.N.) Stockett PO 300 mg (2 tabs now) (09:58 08/30/2016 Lula R.N. verbal order read back to Richa ALLISON) (Cancelled: Other10:29 Lula R.N.) Clonidine PO 0.1 mg (NOW) (09:59 08/30/2016 Lula R.N. verbal order read back to Richa ALLISON) (10:28 Lula R.N.) Metoprolol PO 25 mg (NOW) (10:00 08/30/2016 Lula R.N. verbal order read back to Richa ALLISON) (10:30 Lula R.N.) Ativan PO 1 mg (NOW) (10:01 08/30/2016 Lula R.N. verbal order read back to Richa ALLISON) (10:31 Lula R.N.) -- -- (Gabapentin 600mg po Now) (10:01 08/30/2016 Lula Nava verbal order read back to Richa ALLISON) (10:44 Lula Cruz.N.) -- -- (Lisinopril 10mg po Now) (10:02 08/30/2016 Lula Nava verbal order read back to Richa ALLISON) (10:31 Lula Cruz.N.) Stockett PO 1200mg (NOW) (10:29 08/30/2016 Lula Nava verbal order read back to Richa ALLISON) (10:30 Lula Cruz.N.) IV FLUIDS: ORDER SHEET NOTES: [Electronically signed by Alex Brooks R.N. (11:50 08/30/2016)] [Electronically signed by Rodney Hines MD (16:35 08/30/2016)] [Electronically locked/signed by Alex Brooks R.N. (11:50 08/30/2016)]
--- NOTE | 2016-08-30 11:26 | ED CLINICAL REPORT ---
Clinical Report - Physicians/Mid Levels [facility] [address] [place] [address] 08/29/2016 14:51 Patient: MARILY BROWN Time Seen: 14:55. Arrived- By ambulance. In custody of police. Historian- EMS personnel and police. History limited by poor cooperation. Physical Exam limited by poor cooperation and intoxication. HISTORY OF PRESENT ILLNESS Chief Complaint: DEPRESSED and SUICIDAL ATTEMPT. This started several days ago. Recent heavy alcohol consumption. Last drink was just prior to arrival. He is under influence in ED. Has been depressed and had suicidal thoughts. The symptoms are described as severe. An injury is present. Location- (two days ago he fell forward onto his face.). Additional history - he took a knife and told mother that he was going to kill himself and if that did not work that he would try suicide by endoscopy tech. pt has been in manic episode for that last couple of weeks and increased depression the last couple of days. REVIEW OF SYSTEMS No abdominal pain or pain, decreased vision, ear pain or sore throat. No chest pain, cough, difficulty breathing, headache or seizure. He has had a single skin lesion (He reports that he fell yesterday and scraped his head.); located on the scalp. PAST HISTORY ( PAST HISTORY Chest Pain of GI Origin. GI Disease. Alcohol Intoxication. Vomiting. Abdominal Pain. Abnormal Test. Heart Disease. Gastroesophageal Reflux. Suicidal Ideation. Suicide Attempt. Gastroesophageal Reflux Disease. Cardiomyopathy BY HISTORY, TWO NEGATIVE ECHOS SINCE Gastritis. Lifestyle / Substance Problems. Hypertension. Substance Abuse. Alcoholism. Bipolar Disorder.). Problems: Chest Pain of GI Origin. GI Disease. Alcohol Intoxication. Vomiting. Abdominal Pain. Abnormal Test. Heart Disease. Gastroesophageal Reflux. Suicidal Ideation. Suicide Attempt. Gastroesophageal Reflux Disease. Cardiomyopathy. Gastritis. Lifestyle / Substance Problems. Hypertension. Substance Abuse. Alcoholism. Bipolar Disorder. SOCIAL HISTORY Smoker- current status unknown. Patient refuses to answer tobacco use questions. Heavy alcohol use. Last drink was just prior to arrival. Under the influence in E.D. No drug use. Has social support (The patient's mother has medical power of civil litigation attorney). Lives with family. ADDITIONAL NOTES The nursing notes have been reviewed. PHYSICAL EXAM Vital Signs: 08/29/2016 14:54 BP: 102/48. HR: 74. RR: 14. O2 saturation: 94%. Temp: 97.7 F. Pain level now: 0/10. Have been reviewed. Appearance: Alert. Is disheveled. He appears intoxicated and has ETOH on breath. (Bilateral facial abrasions which are superficial). Eyes: Pupils equal, round and reactive to light. Neck: Normal inspection. Neck supple. CVS: Normal heart rate and rhythm. Heart sounds normal. Respiratory: Breath sounds normal. Abdomen: Soft and nontender. Obese. Skin: Skin warm and dry. Normal skin color. Normal skin turgor. Extremities: Extremities exhibit normal ROM. No lower extremity edema. Psych / Neuro: The patient does not feel treatment is necessary. LABS, X-RAYS, AND EKG EKG: Normal EKG. Rate: 75. EKG unchanged when compared with prior EKG. (15 Dec 2015). Laboratory Tests: CPK: (AZRA: 08/30/2016 06:15) ( [facility] 08/30/2016 06:58) Final results Test Result Flag Units (Reference) CPK 500 H U/L (24-260) CK-MB 2.5 ng/mL (0.5-3.2) %CKMB 0.5 % (0.0-4.0) CPK: (AZRA: 08/30/2016 03:20) ( [facility] 08/30/2016 03:58) Final results Test Result Flag Units (Reference) CPK 558 H U/L (24-260) CK-MB 2.8 ng/mL (0.5-3.2) %CKMB 0.5 % (0.0-4.0) UA-Culture if indicated: (AZRA: 08/29/2016 15:23) ( [facility] 08/29/2016 15:45) Final results Test Result Flag Units (Reference) URINE COLOR YELLOW URINE APPEARANCE CLEAR URINE GLUCOSE NEGATIVE (NEGATIVE) URINE BILIRUBIN NEGATIVE (NEGATIVE) URINE KETONE NEGATIVE (NEGATIVE) URINE SPECIFIC GRAVITY 1.015 (1.010-1.030) URINE PH 8.0 (5.0-8.0) URINE PROTEIN NEGATIVE (NEGATIVE) URINE UROBILINOGEN 0.2 EU/dL (0.2-1.0) URINE NITRITE NEGATIVE (NEGATIVE) URINE BLOOD NEGATIVE (NEGATIVE) URINE LEUK ESTERASE NEGATIVE (NEGATIVE) URINE RBC NONE SEEN rbc/hpf (0-1) URINE WBC NONE SEEN wbc/hpf (0-1) URINE EPITHELIAL CELLS RARE EPI/hpf (0-5) URINE BACTERIA NONE SEEN (NONE SEEN) URINE COMMENT CULT NOT INDICATED URINE CULTURES ARE SET-UP BASED ON THE FOLLOWING CRITERIA:POSITIVE NITRITEPOSITIVE LEUKOCYTE ESTERASEGREATER THAN 10 WHITE BLOOD CELLSMODERATE (2+) OR GREATER BACTERIA CBC w Diff: (AZRA: 08/29/2016 16:00) ( [facility] 08/29/2016 16:31) Final results Test Result Flag Units (Reference) WHITE BLOOD COUNT 6.4 K/uL (4.5-11.5) RED BLOOD COUNT 4.92 M/uL (4.50-5.90) HEMOGLOBIN 14.9 gm/dL (13.5-17.5) HEMATOCRIT 43.6 % (41.0-53.0) MEAN CELL VOLUME 89 fL (80-100) MEAN CORPUSCULAR HGB 30 pg (26-34) MEAN CORPUSCULAR HGB CONC 34 g/dL (31-37) RED CELL DISTRIBUTION WIDTH 13.1 % (11.6-14.8) PLATELET COUNT 224 K/uL (150-400) NEUTROPHIL % 54.6 % (50-75) LYMPH % 34.1 % (25-40) MONO % 5.7 % (3-14) EOSINOPHIL % 5.0 H % (0-4) BASOPHIL % 0.6 % (0-2) TSH: (AZRA: 08/29/2016 16:00) ( [facility] 08/30/2016 00:12) Final results Test Result Flag Units (Reference) THYROID STIMULATING HORMONE 0.744 uIU/mL (0.34-3.74) Urine Drug Screen: (AZRA: 08/29/2016 15:23) ( [facility] 08/29/2016 15:56) Final results Test Result Flag Units (Reference) AMPHETAMINE/METHAMPHETAMINE NEGATIVE (NEGATIVE) BARBITURATE NEGATIVE (NEGATIVE) BENZODIAZEPINE NEGATIVE (NEGATIVE) CANNABINOID NEGATIVE (NEGATIVE) COCAINE NEGATIVE (NEGATIVE) ECSTASY NEGATIVE (NEGATIVE) METHADONE NEGATIVE (NEGATIVE) OPIATE NEGATIVE (NEGATIVE) The urine drug screen is a qualitative screening test fordrug overdose and abuse. All screen results should beconsidered as presumptive.Drugs screened for are as follows:BenzodiazepinesCocaineAmphetamines/MetamphetaminesTHC (Tetrahydrocannabinol)OpiatesBarbituratesEcstasyMethadonePositive results are unconfirmed. For confirmation, notifythe lab for the specimen to be sent to the reference lab.All confirmations must be performed by a differentmethodology.The ingestion of natural herbal and plant productscontaining Ephedra/Ephedra metabolites can produce in urineone or more substances capable of cross reacting withamphetamine/methamphetamine immunoassays. These testsprovide a preliminary result only. A more specificalternative chemical method must be used to obtain aconfirmed analytical result. Salicylate Level: (AZRA: 08/29/2016 16:00) ( [facility] 08/29/2016 17:12) Final results Test Result Flag Units (Reference) SALICYLATE <2.8 L mg/dL (2.8-20) CMP: (AZRA: 08/29/2016 16:00) ( [facility] 08/29/2016 17:10) Final results Test Result Flag Units (Reference) GLUCOSE 96 mg/dL (70-110) BUN 10 mg/dL (7-18) CREATININE 0.9 mg/dL (0.6-1.3) Estimated GFR >60 mL/min Estimated GFR- >60 mL/min Note: Persistent reduction over 3 months in eGFR<60 mL/min/1.73 m2 defines CKD. Patients with eGFR values>=60 mL/min/1.73 m2 may also have CKD if evidence ofpersistent proteinuria. Additional information may be foundat www.kidney.org. SODIUM 147 H mmol/L (136-145) POTASSIUM 3.9 mmol/L (3.5-5.1) CHLORIDE 109 H mmol/L (98-107) CARBON DIOXIDE 30 mmol/L (21-32) CALCIUM 8.6 mg/dL (8.5-10.1) TOTAL PROTEIN 6.8 g/dL (6.4-8.2) ALBUMIN 3.8 g/dL (3.3-5.0) BILIRUBIN, TOTAL 0.8 mg/dL (0.0-1.0) ALKALINE PHOSPHATASE 77 U/L (46-116) AST (SGOT) 42 H U/L (15-37) ALT (SGPT) 39 U/L (12-78) LIPASE 72 L U/L (73-393) AMYLASE 31 U/L (25-115) CPK 882 H U/L (24-260) TROPONIN I <0.05 L ng/mL (0.00-1.5) TROPONIN REFERENCE RANGE:<0.1 NEGATIVE0.1-1.5 INDETERMINANT>1.5 POSITIVE ACETAMINOPHEN < 2.0 L ug/mL (10-30) ETHYL ALCOHOL 183 H mg/dL (3-10) CK-MB 7.5 H ng/mL (0.5-3.2) %CKMB 0.9 % (0.0-4.0) . PROGRESS AND PROCEDURES Course of Care: 21:10 08/29/16. the case was discussed with Dr. Hines at change of shift. We reviewed the patient's history and physical examination findings and the results of his studies. He will follow up on the results of the patient's pending consults and will arrange an appropriate disposition for him. - MW Care assumed from Dr Young. Intedependent history and physical exam done. Anthony Hines MD 01:27 08/30/16. CDP here. 04:37 08/30/16. [facility] [place] found the [facility] but could not find any facility who would accept him. Debbie is at capacity. She is turning him over to our best judgment. 04:39 08/30/16. Called wide area network systems administrator gaming commissioner Reji CARRANZAO. at [phone]. Left a message. 05:05 08/30/16. My judgment is that even though it is without statutory support that on the basis of the police affidavit Mr. Brown should be held. Mr Perez agrees that Mr Brown should be held for now. He will seek further guidance from risk management. 06:26 08/30/16. Feeding Mr Brown breakfast. "I just want to go home. " ordering 3rd CPK. I don't think it is clinically significant but it is the only reason that [facility] declined the admission. 08:01 08/30/16. Isabelle Meadeagit Psych assistant account manager, "We will have discharges." 08:27 08/30/16. [facility] - you need to call [facility] again. 10:21 08/30/16. New [facility]. The history of cardiomyopathy is non relavent currently since he has had two negative echos since by Mr. Ott history. 11:22 08/30/16. [facility] at this [facility]. She does not believe that he is currently at risk to herself or others. Marcos believes that the history given to the combat information center officer with the patient was intoxicated was the non-valid history and that the patient's current sober estimation that he would not harm himself is valid. The patient and his mother are in agreement with Otto's current assessment. He plans to go to an Alcoholics Anonymous meeting today and keep his regular mental health appointments. He will be moving out of [place] in a couple of days and will need to establish mental health follow-up at that time. This is certainly not the best timing. The patient does not desire psychiatric hospitalization nor does the [facility] believe that he is eligible for involuntary psychiatric hospitalization. Disposition: Discharged. Condition: improved. CLINICAL IMPRESSION Suicidal ideation (RESOLVED). Bipolar disorder (history of). Acute alcohol intoxication. INSTRUCTIONS (THE [facility] HAS FOUND YOU NOT DETAINABLE PLEASE DO NOT DRINK YOU HAVE STATED THAT YOU WILL NOT HARM YOUR SELF. IF YOU CANNOT KEEP THAT AGREEMENT PLEASE RETURN TO THE ED. THANK YOU FOR LETTING US CARE FOR YOU.). Understanding of the discharge instructions verbalized by patient. (Electronically signed by Rodney Hines MD 08/30/2016 16:35)
--- NOTE | 2016-08-30 11:26 | ED NURSING NOTES ---
Clinical Report - Nurses [facility] [address] [place] [address] 08/29/2016 14:51 Patient: MARILY ARREDONDO TRIAGE Triage time 14:54 Aug 29 2016. Acuity: LEVEL 2. Chief Complaint: DEPRESSION and SUICIDAL THOUGHTS. No acute distress. RHONDA COMA SCORE: Rhonda Coma Scale: 14- eyes open spontaneously (4); best verbal response- disoriented (4); best motor response- obeys commands (6). --15:03 Patricia Spencer R.N. 14:54 08/29/16. BP: 102/48. HR: 74. RR: 14. O2 saturation: 94%. Temp: 97.7 F. Pain level now: 0/10. --15:03 Patricia Spencer R.N. Weight: 129.2 kg stated. Height/Length: 69 inches Per Patient. BMI: 42.1. --15:02 Patricia Spencer R.N. Medications Ativan Oral (Tablet 1 mg) 1 tablet, 2x a day as needed. --10:49 Alex Brooks R.N. Floral Carbonate ER Oral (Tablet Extended Release 300 mg) 1200mg, daily. --14:56 Alex Brooks R.N. ClonazePAM Oral 0.5 mg, daily as needed. CloNIDine HCl Oral 0.1 mg, 2x a day. Gabapentin Oral (Capsule 300 mg) (2 caps 2 x daily 3 caps at night ). Lisinopril Oral 10 mg, daily. LORazepam Oral 1 mg, daily as needed. Metoprolol Tartrate Oral 25 mg, daily. OLANZapine Oral (Tablet 5 mg) 1/2 - 2 tabs , 3x a day as needed. --14:56 Patricia Spencer R.N. The following entry was struck and corrected by Alex Brooks R.N., 10:47 (08/30/16) Reason for correction - other(correction). <<STRICKEN ENTRY-- Floral Carbonate ER Oral (Tablet Extended Release 300 mg) 5 tabs, daily. --14:56 Patricia Spencer R.N. --END STRIKE>>. Allergies Penicillins. Sulfa Antibiotics. --14:56 Patricia Spencer R.N. History Arrived by EMS, and from home. Historian: patient (EMT). Onset: just prior to arrival. ( pt took knife and told mother that he was going to kill himself and if that did not work that he would try suicide by copy clerk. pt has been in manic episode for that last couple of weeks and increased depression the last couple of days.). He describes feelings of depression and has had sleeping difficulties. Has been feeling agitated. Admits to having hallucinations. PAST MEDICAL HX: Immunizations: status is unknown. SOCIAL HX: Smoker- current status unknown. Heavy alcohol use. Last drink was less than 24 hours ago. No drug use. No infectious disease exposure. SELF HARM ASSESSMENT: A self harm assessment was performed. The patient answered "yes" to the question "Have you recently felt down, depressed, or hopeless?", "Do you have thoughts of harming or killing yourself?", "Are you here because you tried to hurt yourself?" and "Have you ever tried to hurt yourself before today?" and "no" to the question "Have you recently had thoughts about harming or killing others?" and "Do you have any dangerous items in your possession?". The EMS reported the patient's behavior. FALL RISK ASSESSMENT: Fall risk assessment completed. No fall risk identified. NUTRITIONAL RISK ASSESSMENT: The nutritional risk assessment revealed no deficiencies. FUNCTIONAL ASSESSMENT: Functional assessment: no impairments noted. LEARNING NEEDS ASSESSMENT: The learning needs assessment revealed no barriers. ABUSE ASSESSMENT: Abuse assessment: The patient was asked "Do you feel safe in your home?". SKIN INTEGRITY ASSESSMENT: Skin integrity risk assessment completed. No skin integrity risk identified. --15:03 Patricia Spencer R.N. ( belongings in LOCKER #5 LOCK #3). --15:51 Charlee Moon R.N. PROBLEMS: Chest Pain of GI Origin. GI Disease. Alcohol Intoxication. Vomiting. Abdominal Pain. Abnormal Test. Heart Disease. Gastroesophageal Reflux. Suicidal Ideation. Suicide Attempt. Gastroesophageal Reflux Disease. Cardiomyopathy. Gastritis. Lifestyle / Substance Problems. Hypertension. Substance Abuse. Alcoholism. Bipolar Disorder. --14:57 Patricia Spencer R.N. ADDITIONAL SURGERIES: None. --14:57 Patricia Spencer R.N. Interventions ID band on patient. To room. --15:03 Patricia Spencer R.N. PHYSICAL ASSESSMENT To room via stretcher. Patient gowned. GENERAL / NEURO / PSYCH: Alert. Appears in no acute distress. The patient is disoriented to time. Patient's speech is slurred. Patient's mood/affect appears hostile. Behavior appears abnormal, including having apparent auditory and visual hallucinations. The patient describes suicidal thoughts. Patient appears agitated. Patient smells of alcohol. RESPIRATORY: Respirations not labored. CVS: Capillary refill less than 2 seconds. GI / : Abdomen soft and nontender. SKIN: Skin is warm and dry. --15:04 Patricia Spencer R.N. NURSING PROGRESS NOTES Pulse oximeter and NIBP monitor placed on patient; monitor alarms on. Patient gowned. Head of bed elevated. Patient identifiers checked. Call light placed in reach. Side rails up x 2. Bed placed in lowest position. Brakes of bed on. --15:05 Patricia Spencer R.N. BREATHALYZER: Breathalyzer (.162). --15:22 Patricia Spencer R.N. Patient ID band checked for patient name and birthdate. Clean catch urine collected with return of yellow-colored clear urine; sample sent to lab for urinalysis, culture and drug screen. Specimen labeled in the presence of the patient. --15:30 Patricia Spencer R.N. Patient ID band checked for patient name and birthdate. Blood samples drawn from the right antecubital space by nurse per protocol ; labeled in presence of the patient and sent to lab: rainbow set. The patient is sleeping. Overall patient status is the same- he states feels the same. --16:13 Patricia Spencer R.N. ( pt had urinated on floor even though urinal was in the room and then patient got up again to urinate. I handed the patient the urinal this time and waited outside the room. Patient urinate some in urinal and then urinated on the floor again. Notified Charge nurse.). --18:42 Patricia Spencer R.N. <<[facility] ENTRY-- 18:45 08/29/16. BP: 138/79. HR: 93. RR: 18. O2 saturation: 97%. Pain level now: 0/10. --18:49 Patricia Spencer R.N. --END STRIKE>> Charted on wrong patient. --18:52 Patricia Spencer R.N. [facility]-- Overall patient status is the same- he states feels the same. GENERAL / NEURO / PSYCH: Patient appears calm and cooperative. RESPIRATORY: No respiratory distress. SKIN: Skin is warm and dry. --18:49 Patricia Spencer R.N. --END STRIKE>> Charted On Wrong Patient --18:53 Patricia Spencer R.N. 18:40. ( Breathalyzer (.131)). --19:05 Danie Deleon, ABBY Tech1 ( patient was provided phone and attempted to call his mother but there was no answer. pt called this nurse a bitch under his breath when he was handed the phone. the phone was removed from the patients room after he attempted to call home.). --19:15 Patricia Spencer R.N. 19:13 08/29/16. BP: 138/81. HR: 81. RR: 16. O2 saturation: 90%. Pain level now: 0/10. --19:15 Patricia Spencer R.N. The patient is sleeping. Overall patient status is the same- he states feels the same. ( family sitting outside of room while pt is sleeping.). --20:32 Patricia Spencer R.N. BREATHALYZER: Breathalyzer (0.08). --20:42 Patricia Spencer R.N. The patient is sleeping. RESPIRATORY: No respiratory distress. --21:27 Patricia Spencer R.N. The patient is resting quietly. GENERAL / NEURO / PSYCH: Alert. Patient appears calm and cooperative. RESPIRATORY: No respiratory distress. SKIN: Skin is warm and dry. Skin color within normal limits. --21:51 Patricia Spencer R.N. 21:51 08/29/16. BP: 116/69. HR: 89. RR: 16. O2 saturation: 92%. --21:51 Patricia Spencer R.N. 23:04 08/29/2016 TDAP IM 0.5 mL given. (Lot#: [id number], expiration date: 07/13/2018, Director Of Community Education: sanStupeflix pasteur). --23:04 Patricia Spencer R.N. The patient is sleeping. Overall patient status is the same- he states feels the same. ( pt wakes easily and is no longer slurring words and is following directions.). GENERAL / NEURO / PSYCH: Patient appears calm and cooperative. RESPIRATORY: No respiratory distress. SKIN: Skin is warm and dry. Skin color within normal limits. --23:05 Patricia Spencer R.N. late entry - 23:21. Care transferred and report received (from BEA Gomze). --00:30 Karen Peres R.N. 00:30 08/30/16. The patient is sleeping. Overall patient status is improved- he states feels better. RESPIRATORY: No respiratory distress. SKIN: Skin is warm and dry. Skin color within normal limits. --00:30 Karen Peres R.N. late entry - 23:30. ( This RN discussed patient's plan of care with patient's mother, who is his power of patent prosecution attorney. Patients mother states "I want to take him home if you can't find a place for him, but I'm worried I can't keep him safe. I really hope he can go somewhere to get his medication under control." Patient's mother requests that she be notified as soon as a decision is made about the patient's next steps. She is heading home now but states that she will come back whenever needed.). --00:33 Karen Peres R.N. GENERAL / NEURO / PSYCH: Alert. Oriented X 4. Patient appears calm and cooperative. Affect appears normal. RESPIRATORY: No respiratory distress. SKIN: Skin is warm and dry. Skin color within normal limits. ( Patient given water and snack. His tone of voice seems annoyed, but he was pleasant to this RN.). --01:31 Karen Peres R.N. 02:31 08/30/16. The patient is sleeping. RESPIRATORY: No respiratory distress. SKIN: Skin color within normal limits. --02:31 Karen Peres R.N. Patient ID band checked for patient name and birthdate: patient confirmed. Blood samples drawn from the left antecubital space with Vacutainer and 21g butterfly by [facility] per protocol ; labeled in presence of the patient and sent to lab: [facility]. --03:24 Donavan Darby, ABBY Cheese Cook 03:57 08/30/16. The patient is sleeping. RESPIRATORY: No respiratory distress. SKIN: Skin is warm and dry. Skin color within normal limits. --03:57 Karen Peres R.N. ( Patient was not admitted to [facility]. Can call [facility] in the morning (10-11am) to try to find other placement.). --05:00 Karen Peres R.N. 05:09 08/30/16. The patient is sleeping. RESPIRATORY: No respiratory distress. SKIN: Skin is warm and dry. Skin color within normal limits. --05:09 Karen Peres R.N. 04:42. ( BREAKFAST TRAY ORDERED). --05:55 Lara Scott, ER Tech1 06:38 08/30/16. BP: 124/73. HR: 75. RR: 16. O2 saturation: 96%. Pain level now: 0/10. --06:40 Karen Peres R.N. 06:40 08/30/16. --06:40 Karen Peres R.N. Care transferred and report received (Karen, RN). --07:18 Alex Brooks R.N. late entry -08:08. Reassurance given. Bed placed in lowest position. Brakes of bed on. ( Pt in locked seclusion for safety, orders on the chart.). --09:20 Alex Brooks R.N. 10:25 08/30/2016 Clonidine PO Tablets 0.1 mg given. Allergies verified and confirmed 5 rights. --10:28 Alex Brooks R.N. 10:25 08/30/2016 LITHIUM (Floral Citrate) PO Capsules 1200 mg given. Allergies verified and confirmed 5 rights. --10:30 Alex Brooks R.N. 10:25 08/30/2016 Metoprolol PO Tablets 25 mg given. Allergies verified and confirmed 5 rights. --10:30 Alex Brooks R.N. 10:25 08/30/2016 Ativan (LORazepam) PO Tablets 1 mg given. Allergies verified, confirmed 5 rights and sedative warning given to the patient. --10:31 Alex Brooks R.N. 10:25 08/30/2016 Lisinopril PO Tablets 10 mg given. Allergies verified and confirmed 5 rights. --10:31 Alex Brooks R.N. ( [facility] here to assess pt for placement.). --10:35 Alex Brooks R.N. ( Morning meds were given.). --10:35 Alex Brooks R.N. 10:44 08/30/2016 Gabapentin PO Capsules 600 mg given. Allergies verified and confirmed 5 rights. --10:44 Alex Brooks R.N. DISPOSITION / DISCHARGE Departure time: 1135. ( Released from seclusion @1115.). No learning barriers present. Discharge instructions provided and reviewed with the patient and parent. Reviewed warnings. Treatments reviewed. Reviewed referrals. Patient and parent verbalized understanding. Written instructions provided in Israeli. The patient was discharged by the physician. He was discharged home and accompanied by parent. He left the Emergency Department ambulatory and via taxi. Driving (Taxi). Patient's personal items include, Returned to pt. --11:35 Alex Brooks R.N. 11:27 08/30/16. BP: 147/99 (large adult cuff) taken on the right arm, while sitting. HR: 65. RR: 16. O2 saturation: 95% on room air. Temp: 97.9 F (oral). Pain level now: 0/10. --11:35 Alex Brooks R.N. Locked/Released at 08/30/2016 11:50 by Alex Brooks R.N.
--- NOTE | 2016-08-30 16:35 | ED MAR SUMMARY ---
..... Medication Administration Record [facility] [address] [place] [address] Patient: MARILY ARREDONDO Visit ID: [id number] 40y, M Weight: 129.2 kg Height/Length: 69 in BMI: 42.1 ALLERGIES: Penicillins, Sulfa Antibiotics Given 23:04 08/29/2016 Patricia Spencer R.N. Medication Administered: TDAP [IM], Dose: 0.5 mL IM. Medication Ordered: Tdap IM 0.5 mL (NOW). Given 08/30/2016 Alex Brooks R.N. Medication Administered: CLONIDINE [PO], Dose: 0.1 mg Tablets PO. Medication Ordered: Clonidine PO 0.1 mg (NOW). Given 08/30/2016 Alex Brooks R.N. Medication Administered: METOPROLOL [PO], Dose: 25 mg Tablets PO. Medication Ordered: Metoprolol PO 25 mg (NOW). Given 08/30/2016 Alex Brooks R.N. Medication Administered: ATIVAN [PO] (LORAZEPAM), Dose: 1 mg Tablets PO. Medication Ordered: Ativan PO 1 mg (NOW). Given 08/30/2016 Alex Brooks R.N. Medication Administered: LISINOPRIL [PO], Dose: 10 mg Tablets PO. Medication Ordered: -- -- (Lisinopril 10mg po Now). Given 08/30/2016 Alex Brooks R.N. Medication Administered: LITHIUM [PO] (LITHIUM CITRATE), Dose: 1200 mg Capsules PO. Medication Ordered: [place] PO 1200mg (NOW). Given 10:08/30/2016 Alex Brooks R.N. Medication Administered: GABAPENTIN [PO], Dose: 600 mg Capsules PO. Medication Ordered: -- -- (Gabapentin 600mg po Now).
--- NOTE | 2016-08-30 16:35 | ED DISCHARGE INSTRUCTIONS ---
Patient: MARILY ARREDONDO General Instructions [facility] VisitID: [id number] [address] [place] [address] 40y, M Registration Date/Time: 08/29/2016 Suicidal ideation (RESOLVED). Bipolar disorder (history of). Acute alcohol intoxication. INSTRUCTIONS (THE CDP HAS FOUND YOU NOT DETAINABLE PLEASE DO NOT DRINK YOU HAVE STATED THAT YOU WILL NOT HARM YOUR SELF. IF YOU CANNOT KEEP THAT AGREEMENT PLEASE RETURN TO THE ED. THANK YOU FOR LETTING US CARE FOR YOU.). Understanding of the discharge instructions verbalized by patient. (Electronically signed by Rodney Hines MD 08/30/2016 16:35)
--- NOTE | 2016-08-30 16:35 | ED DISCHARGE INSTRUCTIONS ---
Patient: MARILY ARREDONDO General Instructions [facility] VisitID: [id number] [address] [place] [address] 40y, M Registration Date/Time: 08/29/2016 Suicidal ideation (RESOLVED). Bipolar disorder (history of). Acute alcohol intoxication. INSTRUCTIONS (THE CDP HAS FOUND YOU NOT DETAINABLE PLEASE DO NOT DRINK YOU HAVE STATED THAT YOU WILL NOT HARM YOUR SELF. IF YOU CANNOT KEEP THAT AGREEMENT PLEASE RETURN TO THE ED. THANK YOU FOR LETTING US CARE FOR YOU.). Understanding of the discharge instructions verbalized by patient. (Electronically signed by Rodney Hines MD 08/30/2016 16:35)
--- NOTE | 2016-08-30 16:35 | ED MAR SUMMARY ---
..... Medication Administration Record [facility] [address] [place] [address] Patient: MARILY ARREDONDO Visit ID: [id number] 40y, M Weight: 129.2 kg Height/Length: 69 in BMI: 42.1 ALLERGIES: Penicillins, Sulfa Antibiotics Given 23:04 08/29/2016 Patricia Spencer R.N. Medication Administered: TDAP [IM], Dose: 0.5 mL IM. Medication Ordered: Tdap IM 0.5 mL (NOW). Given 08/30/2016 Alex Brooks R.N. Medication Administered: CLONIDINE [PO], Dose: 0.1 mg Tablets PO. Medication Ordered: Clonidine PO 0.1 mg (NOW). Given 08/30/2016 Alex Brooks R.N. Medication Administered: METOPROLOL [PO], Dose: 25 mg Tablets PO. Medication Ordered: Metoprolol PO 25 mg (NOW). Given 08/30/2016 Alex Brooks R.N. Medication Administered: ATIVAN [PO] (LORAZEPAM), Dose: 1 mg Tablets PO. Medication Ordered: Ativan PO 1 mg (NOW). Given 08/30/2016 Alex Brooks R.N. Medication Administered: LISINOPRIL [PO], Dose: 10 mg Tablets PO. Medication Ordered: -- -- (Lisinopril 10mg po Now). Given 08/30/2016 Alex Brooks R.N. Medication Administered: LITHIUM [PO] (LITHIUM CITRATE), Dose: 1200 mg Capsules PO. Medication Ordered: [place] PO 1200mg (NOW). Given 10:08/30/2016 Alex Brooks R.N. Medication Administered: GABAPENTIN [PO], Dose: 600 mg Capsules PO. Medication Ordered: -- -- (Gabapentin 600mg po Now).
--- NOTE | 2016-08-30 16:36 | ED MED RECONCILIATION SUMMARY ---
Patient: MARILY ARREDONDO Medication Reconciliation Report [facility] VisitID: [id number] [place] [address] 40y, M Registration Date/Time: 08/29/2016 Weight: 129.2 kg Height/Length: 69 in. BMI: 42.1 ALLERGIES: Penicillins, Sulfa Antibiotics The patient's Home Medications are listed below: THE FOLLOWING MEDICATIONS NEED TO BE RECONCILED: Ativan Oral (1 mg) 1 tablet, 2x a day ClonazePAM Oral 0.5 mg, daily CloNIDine HCl Oral 0.1 mg, 2x a day Gabapentin Oral (300 mg), 2 caps 2 x daily 3 caps at night Lisinopril Oral 10 mg, daily [place] Carbonate ER Oral (300 mg) 1200mg, daily LORazepam Oral 1 mg, daily Metoprolol Tartrate Oral 25 mg, daily OLANZapine Oral (5 mg) 1/2 - 2 tabs , 3x a day The source(s) of the original Home Medication information: Not obtained. The following Medications were given to the patient in the Emergency Department: TDAP [IM] IM 0.5 mL, administered: 08/29/2016 11:04:00 PM Clonidine [PO] PO 0.1 mg, administered: 08/30/2016 10:25:00 AM LITHIUM [PO] PO 1200 mg, administered: 08/30/2016 10:25:00 AM Metoprolol [PO] PO 25 mg, administered: 08/30/2016 10:25:00 AM Ativan [PO] PO 1 mg, administered: 08/30/2016 10:25:00 AM Lisinopril [PO] PO 10 mg, administered: 08/30/2016 10:25:00 AM Gabapentin [PO] PO 600 mg, administered: 08/30/2016 10:44:00 AM The following Medications were prescribed to the patient: None.
--- NOTE | 2016-08-30 16:36 | ED MED RECONCILIATION SUMMARY ---
Patient: MARILY ARREDONDO Medication Reconciliation Report [facility] VisitID: [id number] [place] [address] 40y, M Registration Date/Time: 08/29/2016 Weight: 129.2 kg Height/Length: 69 in. BMI: 42.1 ALLERGIES: Penicillins, Sulfa Antibiotics The patient's Home Medications are listed below: THE FOLLOWING MEDICATIONS NEED TO BE RECONCILED: Ativan Oral (1 mg) 1 tablet, 2x a day ClonazePAM Oral 0.5 mg, daily CloNIDine HCl Oral 0.1 mg, 2x a day Gabapentin Oral (300 mg), 2 caps 2 x daily 3 caps at night Lisinopril Oral 10 mg, daily [place] Carbonate ER Oral (300 mg) 1200mg, daily LORazepam Oral 1 mg, daily Metoprolol Tartrate Oral 25 mg, daily OLANZapine Oral (5 mg) 1/2 - 2 tabs , 3x a day The source(s) of the original Home Medication information: Not obtained. The following Medications were given to the patient in the Emergency Department: TDAP [IM] IM 0.5 mL, administered: 08/29/2016 11:04:00 PM Clonidine [PO] PO 0.1 mg, administered: 08/30/2016 10:25:00 AM LITHIUM [PO] PO 1200 mg, administered: 08/30/2016 10:25:00 AM Metoprolol [PO] PO 25 mg, administered: 08/30/2016 10:25:00 AM Ativan [PO] PO 1 mg, administered: 08/30/2016 10:25:00 AM Lisinopril [PO] PO 10 mg, administered: 08/30/2016 10:25:00 AM Gabapentin [PO] PO 600 mg, administered: 08/30/2016 10:44:00 AM The following Medications were prescribed to the patient: None.
== END 2016-08-30 11:35 | disposition home or self-care (01) ==
LOC: ED SRH 14:51
DX: R45.851 Suicidal ideations (principal); F31.9 Bipolar disorder, unspecified; F10.129 Alcohol abuse with intoxication, unspecified; I10 Essential (primary) hypertension; K21.9 Gastro-esophageal reflux disease without esophagitis; Z79.899 Other long term (current) drug therapy; Z88.2 Allergy status to sulfonamides; Z88.0 Allergy status to penicillin
CPT/HCPCS: 90004; 90074; 90100; 90616; 90617; 92010; 92235; 92530; 92610; 92760; 92761; 92762; 92763; 92764; 92765; 92766; 92767; 92780; 93140; 95059; 97000

== ENCOUNTER 2016-09-06 17:41 | Emergency (ER) | payer MEDICARE ==
--- NOTE | 2016-09-06 18:39 | DIAGNOSTIC IMAGING REPORT ---
PROCEDURE: US VENOUS - RIGHT EXT INDICATION: SWELLING TECHNIQUE: Color Doppler duplex imaging of the deep and superficial venous system without and with compression. COMPARISON: None. FINDINGS: Deep and superficial venous system of the right lower extremity is within normal limits. There is no evidence of deep vein thrombosis or superficial thrombophlebitis. IMPRESSION: 1. Negative venous ultrasound of the right lower extremity.
--- NOTE | 2016-09-06 18:41 | ED ORDER SUMMARY ---
..... Patient: MARILY ARREDONDO OrderSheet [facility] VisitID: [id number] [place] [address] 40y, M Registration Date/Time: 09/06/2016 ORDER SHEET Weight: 107.9 kg (stated) Allergies: Penicillins, Sulfa Antibiotics GENERAL ORDERS: US Venous Right Urgent (17:54 09/06/2016 Fabiano Mijares) ([facility] (18:42 Jess R.N.) Macho Wrap (18:40 09/06/2016 Fabiano Mijares) (18:42 Jess R.N.) MEDICATION ORDERS: IV FLUIDS: ORDER SHEET NOTES: [Electronically signed by Kady Marquez P.A.-C (18:56 09/06/2016)] [Electronically signed by Bandar Luna R.N. (19:09 09/06/2016)] [Electronically locked/signed by Bandar Luna R.N. (19:09 09/06/2016)]
--- NOTE | 2016-09-06 18:41 | ED NURSING NOTES ---
Clinical Report - Nurses [facility] [address] [place] [address] 09/06/2016 17:42 Patient: MARILY ARREDONDO TRIAGE Triage time 17:47. Acuity: LEVEL 3. Chief Complaint: RIGHT LOWER EXTREMITY PAIN, SWELLING and REDNESS. Location of symptoms- (Sent from the [facility], [place], operated by [facility] for posible blood clot.). Alert. No acute distress. SEPSIS SCREEN: Sepsis Screen: negative. Negative (no infection suspected/documented). RHONDA COMA SCORE: Rhonda Coma Scale: 15- eyes open spontaneously (4); best verbal response- oriented x 4 (5); best motor response- obeys commands (6). --17:55 Hyun Murray R.N. 17:47 09/06/16. BP: 133/91. HR: 81. RR: 16. O2 saturation: 96%. Temp: 98.1 F. Pain level now: 05/12. --17:55 Hyun Murray R.N. 17:47 09/06/16. BP: 133/91. HR: 81. RR: 16. O2 saturation: 96%. Temp: 98.1 F. Pain level now: 05/12. --17:55 Hyun Mruray R.N. Weight: 107.9 kg stated. Height/Length: 69 inches Per Patient. BMI: 35.2. --17:53 Hyun Murray R.N. Medications Ativan Oral (Tablet 1 mg) 1 tablet, 2x a day as needed. --17:49 Hyun Murray R.N. ClonazePAM Oral 0.5 mg, daily as needed. CloNIDine HCl Oral 0.1 mg, 2x a day. Gabapentin Oral (Capsule 300 mg) (2 caps 2 x daily 3 caps at night ). Lisinopril Oral 10 mg, daily. [place] Carbonate ER Oral (Tablet Extended Release 300 mg) 1200mg, daily. LORazepam Oral 1 mg, daily as needed. Metoprolol Tartrate Oral 25 mg, daily. OLANZapine Oral (Tablet 5 mg) 1/2 - 2 tabs , 3x a day as needed. --17:49 Hyun Murray R.N. Medication/allergy information source: the patient. --17:55 Hyun Murray R.N. Allergies Penicillins. Sulfa Antibiotics. --17:49 Hyun Murray R.N. History Arrived by private vehicle. Historian: patient. Accompanied by family. Primary physician ([facility], [place], operated by [facility]). No injury occurred. This occurred (6 days ago). He has had swelling and redness. 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 PAST MEDICAL HX: Tetanus status: unknown. SOCIAL HX: Smoker- current status unknown. Occasional alcohol use. No drug use. FALL RISK ASSESSMENT: Fall risk assessment completed. No fall risk identified. NUTRITIONAL RISK ASSESSMENT: The nutritional risk assessment revealed no deficiencies. FUNCTIONAL ASSESSMENT: Functional assessment: no impairments noted. LEARNING NEEDS ASSESSMENT: The learning needs assessment revealed no barriers. SKIN INTEGRITY ASSESSMENT: Skin integrity risk assessment completed. No skin integrity risk identified. --17:55 Hyun Murray R.N. PROBLEMS: Chest Pain of GI Origin. GI Disease. Alcohol Intoxication. Vomiting. Abdominal Pain. Abnormal Test. Heart Disease. Gastroesophageal Reflux. Suicidal Ideation. Suicide Attempt. Gastroesophageal Reflux Disease. Cardiomyopathy. Gastritis. Lifestyle / Substance Problems. Hypertension. Substance Abuse. Alcoholism. Bipolar Disorder. --17:50 Hyun Murray R.N. Interventions ID band on patient. To room. --17:55 Hyun Murray R.N. PHYSICAL ASSESSMENT Ambulatory to room. Patient gowned. GENERAL / NEURO / PSYCH: Oriented X 4. Alert. Appears in no acute distress. Appears anxious. EXTREMITIES: 1+ edema of the right lower extremity. Extremity pulses are within normal limits. Right leg: tenderness, swelling and erythema. SKIN: Skin intact. Skin is warm and dry. --17:56 Hyun Murray R.N. NURSING PROGRESS NOTES Extremity elevated. Patient gowned. Two patient identifiers checked. Call light placed in reach. Side rails up x 2. Bed placed in lowest position. Brakes of bed on. Patient ready for evaluation. --17:56 Hyun Murray R.N. DISPOSITION / DISCHARGE 18:50 09/06/16. Condition at departure: improved. The goals identified in the patient's plan of care were met. No learning barriers present. Discharge instructions provided and reviewed with the patient. Reviewed warnings. Reviewed medication(s). Treatments reviewed. Patient verbalized understanding. Written instructions provided in [place]. The patient was discharged by the physician. He was discharged home and accompanied by family. He left the Emergency Department ambulatory and via private vehicle. Family member driving. FALL RISK ASSESSMENT: Fall risk assessment completed. No fall risk identified. --18:50 Bandar Luna R.N. 18:49 09/06/16. BP: 128/88. HR: 87. RR: 14. O2 saturation: 99% on room air. Temp: 98.2 F (oral). Pain level now: 05/12. --18:50 Bandar Luna R.N. 18:50 09/06/16. Departure time: 18:50 Sep 06 2016. --18:50 Bandar Luna R.N. Locked/Released at 09/06/2016 19:09 by Bandar Luna R.N.
--- NOTE | 2016-09-06 18:41 | ED ORDER SUMMARY ---
..... Patient: MARILY ARREDONDO OrderSheet [facility] VisitID: [id number] [place] [address] 40y, M Registration Date/Time: 09/06/2016 ORDER SHEET Weight: 107.9 kg (stated) Allergies: Penicillins, Sulfa Antibiotics GENERAL ORDERS: US Venous Right Urgent (17:54 09/06/2016 Fabiano Mijares) ([facility] (18:42 Jess R.N.) Macho Wrap (18:40 09/06/2016 Fabiano Mijares) (18:42 Jess R.N.) MEDICATION ORDERS: IV FLUIDS: ORDER SHEET NOTES: [Electronically signed by Kady Maqruez P.A.-C (18:56 09/06/2016)] [Electronically signed by Bandar Luna R.N. (19:09 09/06/2016)] [Electronically locked/signed by Bandar Luna R.N. (19:09 09/06/2016)]
--- NOTE | 2016-09-06 18:41 | ED CLINICAL REPORT ---
Clinical Report - Physicians/Mid Levels Merged With [facility] [address] [place] [place] [address] 09/06/2016 17:42 Patient: MARILY ARREDONDO Time Seen: 1750. Arrived- By private vehicle. Historian- patient. HISTORY OF PRESENT ILLNESS Chief Complaint: right le swelling/ pain. This started 6 days. No weight loss or headache. (patient with right lower extremity pain swelling over the last 6 days, the symptoms have been improving. Denies any shortness of breath to him. He denies any recent prolonged immobilization, or recent surgery. Denies history of DVT or PE. Patient was in outpatient clinic was told to come to the ER, as he had a blood test for blood clots that was positive. Patient denies any injury to the right lower extremity specific in nature.). REVIEW OF SYSTEMS No fever, sore throat, cough, chest pain or blackouts. No difficulty with ambulation. All systems otherwise negative, except as recorded above. PAST HISTORY Problems: Chest Pain of GI Origin. GI Disease. Alcohol Intoxication. Vomiting. Abdominal Pain. Abnormal Test. Heart Disease. Gastroesophageal Reflux. Suicidal Ideation. Suicide Attempt. Gastroesophageal Reflux Disease. Cardiomyopathy. Gastritis. Lifestyle / Substance Problems. Hypertension. Substance Abuse. Alcoholism. Bipolar Disorder. Additional Surgeries: Unknown. Medications: ClonazePAM Oral 0.5 mg, daily as needed. CloNIDine HCl Oral 0.1 mg, 2x a day. Gabapentin Oral (Capsule 300 mg) (2 caps 2 x daily 3 caps at night ). Lisinopril Oral 10 mg, daily. [place] Carbonate ER Oral (Tablet Extended Release 300 mg) 1200mg, daily. LORazepam Oral 1 mg, daily as needed. Metoprolol Tartrate Oral 25 mg, daily. OLANZapine Oral (Tablet 5 mg) 1/2 - 2 tabs , 3x a day as needed. Ativan Oral (Tablet 1 mg) 1 tablet, 2x a day as needed. Allergies: Penicillins. Sulfa Antibiotics. SOCIAL HISTORY Current every day smoker. Alcohol use. (h/o). ADDITIONAL NOTES The nursing notes have been reviewed. PHYSICAL EXAM Vital Signs: 09/06/2016 17:47 BP: 133/91. HR: 81. RR: 16. O2 saturation: 96%. Temp: 98.1 F. Pain level now: 05/12. Appearance: Alert. Does not appear to be anxious. Eyes: Eyes normal inspection. ENT: Nose normal. Pharynx normal. CVS: Normal heart rate and rhythm. Heart sounds normal. Respiratory: No respiratory distress. Breath sounds normal. Chest nontender. No accessory muscle use. Abdomen: No visible injury. Soft. Skin: Skin warm. Normal skin color. Extremities: Extremities exhibit normal ROM. No clubbing present. No calf tenderness. No lower extremity edema. Neuro: Oriented X 3. LABS, X-RAYS, AND EKG Note - Tests: (us r. le: venous: IMPRESSION: 1. Negative venous ultrasound of the right lower extremity. Electronically Final signed by:Ralf Davison MD 09/06/2016 6:33:39 PM). PROGRESS AND PROCEDURES Course of Care: CMP: K is 4.2, AST 188 ALT 206 CR 0.97, Glucose 94, BUN 23, Cr 0.97 NA 137 Chloride 98 T. Bili 0.9 Alk phos 64 CBC: 8.3, rbc, 5.35, h/h 16/47.5 plt 238, D.dimer 0.57 REF range 0.27- 0.49 patient reports this pain over the last 7-10 days has been improving. Pain worsens with movement and activity, as especially stairs. At this time negative ultrasound, potassium appears great. Slightly elevated d-dimer from an outside clinic as above,patient with no current shortness of breath, I do not suspect DVT or PE. Patient discharged. Precautions given her regard to return and follow-up. 09/06/2016 18:49 BP: 128/88. HR: 87. RR: 14. O2 saturation: 99%. Temp: 98.2 F. Pain level now: 05/12. Patient is stable. Symptoms better. Patient/family counseled. Disposition: Discharged. Condition: good. CLINICAL IMPRESSION Muscle strain. Muscle strain of the right lower leg. INSTRUCTIONS Prescription Medications: Ibuprofen 800 mg tablets: take 1 tablet orally every 8 hours for 3 days, as needed for pain. Dispense twenty (20). No refill. Follow-up: Follow up with your doctor in three days. (Electronically signed by Kady Marquez, P.A.-Jia 09/06/2016 18:56)
--- NOTE | 2016-09-06 18:41 | ED NURSING NOTES ---
Clinical Report - Nurses Merged With [facility] [address] [place] [address] 09/06/2016 17:42 Patient: MARILY ARREDONDO TRIAGE Triage time 17:47. Acuity: LEVEL 3. Chief Complaint: RIGHT LOWER EXTREMITY PAIN, SWELLING and REDNESS. Location of symptoms- (Sent from the [facility] for posible blood clot.). Alert. No acute distress. SEPSIS SCREEN: Sepsis Screen: negative. Negative (no infection suspected/documented). RHONDA COMA SCORE: Rhonda Coma Scale: 15- eyes open spontaneously (4); best verbal response- oriented x 4 (5); best motor response- obeys commands (6). --17:55 Hyun Murray R.N. 17:47 09/06/16. BP: 133/91. HR: 81. RR: 16. O2 saturation: 96%. Temp: 98.1 F. Pain level now: 05/12. --17:55 Hyun Murray R.N. 17:47 09/06/16. BP: 133/91. HR: 81. RR: 16. O2 saturation: 96%. Temp: 98.1 F. Pain level now: 05/12. --17:55 Hyun Murray R.N. Weight: 107.9 kg stated. Height/Length: 69 inches Per Patient. BMI: 35.2. --17:53 Hyun Murray R.N. Medications Ativan Oral (Tablet 1 mg) 1 tablet, 2x a day as needed. --17:49 Hyun Murray R.N. ClonazePAM Oral 0.5 mg, daily as needed. CloNIDine HCl Oral 0.1 mg, 2x a day. Gabapentin Oral (Capsule 300 mg) (2 caps 2 x daily 3 caps at night ). Lisinopril Oral 10 mg, daily. [place] Carbonate ER Oral (Tablet Extended Release 300 mg) 1200mg, daily. LORazepam Oral 1 mg, daily as needed. Metoprolol Tartrate Oral 25 mg, daily. OLANZapine Oral (Tablet 5 mg) 1/2 - 2 tabs , 3x a day as needed. --17:49 Hyun Murray R.N. Medication/allergy information source: the patient. --17:55 Hyun Murray R.N. Allergies Penicillins. Sulfa Antibiotics. --17:49 Hyun Murray R.N. History Arrived by private vehicle. Historian: patient. Accompanied by family. Primary physician ([facility]). No injury occurred. This occurred (6 days ago). He has had swelling and redness. 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 PAST MEDICAL HX: Tetanus status: unknown. SOCIAL HX: Smoker- current status unknown. Occasional alcohol use. No drug use. FALL RISK ASSESSMENT: Fall risk assessment completed. No fall risk identified. NUTRITIONAL RISK ASSESSMENT: The nutritional risk assessment revealed no deficiencies. FUNCTIONAL ASSESSMENT: Functional assessment: no impairments noted. LEARNING NEEDS ASSESSMENT: The learning needs assessment revealed no barriers. SKIN INTEGRITY ASSESSMENT: Skin integrity risk assessment completed. No skin integrity risk identified. --17:55 Hyun Murray R.N. PROBLEMS: Chest Pain of GI Origin. GI Disease. Alcohol Intoxication. Vomiting. Abdominal Pain. Abnormal Test. Heart Disease. Gastroesophageal Reflux. Suicidal Ideation. Suicide Attempt. Gastroesophageal Reflux Disease. Cardiomyopathy. Gastritis. Lifestyle / Substance Problems. Hypertension. Substance Abuse. Alcoholism. Bipolar Disorder. --17:50 Hyun Murray R.N. Interventions ID band on patient. To room. --17:55 Hyun Murray R.N. PHYSICAL ASSESSMENT Ambulatory to room. Patient gowned. GENERAL / NEURO / PSYCH: Oriented X 4. Alert. Appears in no acute distress. Appears anxious. EXTREMITIES: 1+ edema of the right lower extremity. Extremity pulses are within normal limits. Right leg: tenderness, swelling and erythema. SKIN: Skin intact. Skin is warm and dry. --17:56 Hyun Murray R.N. NURSING PROGRESS NOTES Extremity elevated. Patient gowned. Two patient identifiers checked. Call light placed in reach. Side rails up x 2. Bed placed in lowest position. Brakes of bed on. Patient ready for evaluation. --17:56 Hyun Murray R.N. DISPOSITION / DISCHARGE 18:50 09/06/16. Condition at departure: improved. The goals identified in the patient's plan of care were met. No learning barriers present. Discharge instructions provided and reviewed with the patient. Reviewed warnings. Reviewed medication(s). Treatments reviewed. Patient verbalized understanding. Written instructions provided in [place]. The patient was discharged by the physician. He was discharged home and accompanied by family. He left the Emergency Department ambulatory and via private vehicle. Family member driving. FALL RISK ASSESSMENT: Fall risk assessment completed. No fall risk identified. --18:50 Bandar Luna R.N. 18:49 09/06/16. BP: 128/88. HR: 87. RR: 14. O2 saturation: 99% on room air. Temp: 98.2 F (oral). Pain level now: 05/12. --18:50 Bandar Lnua R.N. 18:50 09/06/16. Departure time: 18:50 Sep 06 2016. --18:50 Badnar Luna R.N. Locked/Released at 09/06/2016 19:09 by Bandar Luna R.N.
--- NOTE | 2016-09-06 19:09 | ED MAR SUMMARY ---
..... Medication Administration Record [facility] [address] [place], [place] [id number] Patient: MARILY ARREDONDO Visit ID: [id number] 40y, M Weight: 107.9 kg Height/Length: 69 in BMI: 35.2 ALLERGIES: Penicillins, Sulfa Antibiotics
--- NOTE | 2016-09-06 19:09 | ED MAR SUMMARY ---
..... Medication Administration Record [facility] [address] [place], [place] [id number] Patient: MARILY ARREDONDO Visit ID: [id number] 40y, M Weight: 107.9 kg Height/Length: 69 in BMI: 35.2 ALLERGIES: Penicillins, Sulfa Antibiotics
--- NOTE | 2016-09-06 19:09 | ED MED RECONCILIATION SUMMARY ---
Patient: MARILY ARREDONDO Medication Reconciliation Report [facility] VisitID: [id number] [place] [address] 40y, M Registration Date/Time: 09/06/2016 Weight: 107.9 kg Height/Length: 69 in. BMI: 35.2 ALLERGIES: Penicillins, Sulfa Antibiotics The patient's Home Medications are listed below: THE FOLLOWING MEDICATIONS NEED TO BE RECONCILED: Ativan Oral (1 mg) 1 tablet, 2x a day ClonazePAM Oral 0.5 mg, daily CloNIDine HCl Oral 0.1 mg, 2x a day Gabapentin Oral (300 mg), 2 caps 2 x daily 3 caps at night Lisinopril Oral 10 mg, daily [place] Carbonate ER Oral (300 mg) 1200mg, daily LORazepam Oral 1 mg, daily Metoprolol Tartrate Oral 25 mg, daily OLANZapine Oral (5 mg) 1/2 - 2 tabs , 3x a day The source(s) of the original Home Medication information: patient The following Medications were given to the patient in the Emergency Department: None. The following Medications were prescribed to the patient: Ibuprofen 800 mg tablets: take 1 tablet orally every 8 hours for 3 days, as needed for pain. Dispense twenty (20). No refill. -- Kady Marquez P.A.-C
--- NOTE | 2016-09-06 19:09 | ED DISCHARGE INSTRUCTIONS ---
Patient: MARILY ARREDONDO General Instructions [facility] VisitID: [id number] [place] [address] 40y, M Registration Date/Time: 09/06/2016 Muscle strain. Muscle strain of the right lower leg. INSTRUCTIONS Prescription Medications: Ibuprofen 800 mg tablets: take 1 tablet orally every 8 hours for 3 days, as needed for pain. Dispense twenty (20). No refill. Follow-up: Follow up with your doctor in three days. ADDITIONAL INFORMATION Muscle Strain,Extremity A MUSCLE STRAIN is a stretching and tearing of muscle fibers. This causes pain, especially with motion of that muscle. There may also be some swelling and bruising. Home Care: 1) Keep the injured area raised to reduce pain and swelling. This is especially important during the first 48 hours. 2) Make an ice pack (ice cubes in a plastic bag, wrapped in a towel) and apply for 20 minutes every 1-2 hours the first day. You should continue with ice packs 3-4 times a day for the second and third days. Unless otherwise instructed, on the fourth day you may begin hot soaks or hot packs (small towel soaked in hot water) 3-4 times a day while you gently exercise the involved area. 3) You may use acetaminophen (Tylenol) or ibuprofen (Motrin, Advil) to control pain, unless another medicine was prescribed. [ NOTE : If you have chronic liver or kidney disease or ever had a stomach ulcer or GI bleeding, talk with your doctor before using these medicines.] 4) For LEG STRAINS: If CRUTCHES have been recommended, do not bear full weight on the injured leg until you can do so without pain. You may return to sports when you are able to hop and run on the injured leg without pain. Follow Up with your doctor or this facility if you are not improving within the next five days. Get Prompt Medical Attention if any of the following occur: -- Fingers or toes become swollen, cold, blue, numb or tingly -- Pain or swelling increases Muscle Strain,Extremity A MUSCLE STRAIN is a stretching and tearing of muscle fibers. This causes pain, especially with motion of that muscle. There may also be some swelling and bruising. Home Care: 1) Keep the injured area raised to reduce pain and swelling. This is especially important during the first 48 hours. 2) Make an ice pack (ice cubes in a plastic bag, wrapped in a towel) and apply for 20 minutes every 1-2 hours the first day. You should continue with ice packs 3-4 times a day for the second and third days. Unless otherwise instructed, on the fourth day you may begin hot soaks or hot packs (small towel soaked in hot water) 3-4 times a day while you gently exercise the involved area. 3) You may use acetaminophen (Tylenol) or ibuprofen (Motrin, Advil) to control pain, unless another medicine was prescribed. [ NOTE : If you have chronic liver or kidney disease or ever had a stomach ulcer or GI bleeding, talk with your doctor before using these medicines.] 4) For LEG STRAINS: If CRUTCHES have been recommended, do not bear full weight on the injured leg until you can do so without pain. You may return to sports when you are able to hop and run on the injured leg without pain. Follow Up with your doctor or this facility if you are not improving within the next five days. Get Prompt Medical Attention if any of the following occur: -- Fingers or toes become swollen, cold, blue, numb or tingly -- Pain or swelling increases You have been given the following additional information: Muscle Strain, Extremity Muscle Strain, Extremity (Electronically signed by Kady Marquez P.A.-C 09/06/2016 18:56)
--- NOTE | 2016-09-06 19:09 | ED DISCHARGE INSTRUCTIONS ---
Patient: MARILY ARREDONDO General Instructions [facility] VisitID: [id number] [place] [address] 40y, M Registration Date/Time: 09/06/2016 Muscle strain. Muscle strain of the right lower leg. INSTRUCTIONS Prescription Medications: Ibuprofen 800 mg tablets: take 1 tablet orally every 8 hours for 3 days, as needed for pain. Dispense twenty (20). No refill. Follow-up: Follow up with your doctor in three days. ADDITIONAL INFORMATION Muscle Strain,Extremity A MUSCLE STRAIN is a stretching and tearing of muscle fibers. This causes pain, especially with motion of that muscle. There may also be some swelling and bruising. Home Care: 1) Keep the injured area raised to reduce pain and swelling. This is especially important during the first 48 hours. 2) Make an ice pack (ice cubes in a plastic bag, wrapped in a towel) and apply for 20 minutes every 1-2 hours the first day. You should continue with ice packs 3-4 times a day for the second and third days. Unless otherwise instructed, on the fourth day you may begin hot soaks or hot packs (small towel soaked in hot water) 3-4 times a day while you gently exercise the involved area. 3) You may use acetaminophen (Tylenol) or ibuprofen (Motrin, Advil) to control pain, unless another medicine was prescribed. [ NOTE : If you have chronic liver or kidney disease or ever had a stomach ulcer or GI bleeding, talk with your doctor before using these medicines.] 4) For LEG STRAINS: If CRUTCHES have been recommended, do not bear full weight on the injured leg until you can do so without pain. You may return to sports when you are able to hop and run on the injured leg without pain. Follow Up with your doctor or this facility if you are not improving within the next five days. Get Prompt Medical Attention if any of the following occur: -- Fingers or toes become swollen, cold, blue, numb or tingly -- Pain or swelling increases Muscle Strain,Extremity A MUSCLE STRAIN is a stretching and tearing of muscle fibers. This causes pain, especially with motion of that muscle. There may also be some swelling and bruising. Home Care: 1) Keep the injured area raised to reduce pain and swelling. This is especially important during the first 48 hours. 2) Make an ice pack (ice cubes in a plastic bag, wrapped in a towel) and apply for 20 minutes every 1-2 hours the first day. You should continue with ice packs 3-4 times a day for the second and third days. Unless otherwise instructed, on the fourth day you may begin hot soaks or hot packs (small towel soaked in hot water) 3-4 times a day while you gently exercise the involved area. 3) You may use acetaminophen (Tylenol) or ibuprofen (Motrin, Advil) to control pain, unless another medicine was prescribed. [ NOTE : If you have chronic liver or kidney disease or ever had a stomach ulcer or GI bleeding, talk with your doctor before using these medicines.] 4) For LEG STRAINS: If CRUTCHES have been recommended, do not bear full weight on the injured leg until you can do so without pain. You may return to sports when you are able to hop and run on the injured leg without pain. Follow Up with your doctor or this facility if you are not improving within the next five days. Get Prompt Medical Attention if any of the following occur: -- Fingers or toes become swollen, cold, blue, numb or tingly -- Pain or swelling increases You have been given the following additional information: Muscle Strain, Extremity Muscle Strain, Extremity (Electronically signed by Kady Marquez P.A.-C 09/06/2016 18:56)
--- NOTE | 2016-09-06 19:09 | ED MED RECONCILIATION SUMMARY ---
Patient: MARILY ARREDONDO Medication Reconciliation Report [facility] VisitID: [id number] [place] [address] 40y, M Registration Date/Time: 09/06/2016 Weight: 107.9 kg Height/Length: 69 in. BMI: 35.2 ALLERGIES: Penicillins, Sulfa Antibiotics The patient's Home Medications are listed below: THE FOLLOWING MEDICATIONS NEED TO BE RECONCILED: Ativan Oral (1 mg) 1 tablet, 2x a day ClonazePAM Oral 0.5 mg, daily CloNIDine HCl Oral 0.1 mg, 2x a day Gabapentin Oral (300 mg), 2 caps 2 x daily 3 caps at night Lisinopril Oral 10 mg, daily Primghar Carbonate ER Oral (300 mg) 1200mg, daily LORazepam Oral 1 mg, daily Metoprolol Tartrate Oral 25 mg, daily OLANZapine Oral (5 mg) 1/2 - 2 tabs , 3x a day The source(s) of the original Home Medication information: patient The following Medications were given to the patient in the Emergency Department: None. The following Medications were prescribed to the patient: Ibuprofen 800 mg tablets: take 1 tablet orally every 8 hours for 3 days, as needed for pain. Dispense twenty (20). No refill. -- Kady Marquez P.A.-C
== END 2016-09-06 18:50 | disposition home or self-care (01) ==
LOC: ED SRH 17:41
DX: S86.911A Strain of unspecified muscle(s) and tendon(s) at lower leg level, right leg, initial encounter (principal); F17.200 Nicotine dependence, unspecified, uncomplicated; I10 Essential (primary) hypertension; Z79.899 Other long term (current) drug therapy